=== PATIENT | female | born 1985 | race African-American/Black ===

== ENCOUNTER 2020-07-21 16:01 | Outpatient (REF) | payer OTHER, SELFPAY | END 2020-07-21 16:02 | disposition home or self-care (01) | LOC: HO.LAB 16:01 | PROVIDERS: Visit Provider Internal Medicine | DX: Z20.828 Contact with and (suspected) exposure to other viral communicable diseases (principal) | CPT/HCPCS: C9803; U0003 ==

== ENCOUNTER → 2022-01-12 14:34 | Outpatient (BNVA) | payer OTHER, SELFPAY | PROVIDERS: PCP Nurse Practitioner Family; Visit Provider Physician Assistant | DX: Z13.89 Encounter for screening for other disorder (principal) ==

== ENCOUNTER → 2022-02-04 08:32 | Outpatient (BNVA) | payer OTHER, SELFPAY | PROVIDERS: PCP Nurse Practitioner Family; Referring Provider Nurse Practitioner Family; Visit Provider Physician Assistant | DX: E66.01 Morbid (severe) obesity due to excess calories (principal); Z68.42 Body mass index [BMI] 45.0-49.9, adult; K21.9 Gastro-esophageal reflux disease without esophagitis; Z98.0 Intestinal bypass and anastomosis status | CPT/HCPCS: 99202 ==

== ENCOUNTER 2022-02-26 08:33 | Outpatient (REF) | payer OTHER, SELFPAY ==
--- NOTE | ~2022-02-26 | FL_ITS ---
EXAMINATION: FL UPPER GI SERIES CLINICAL INFORMATION: Prior gastric bypass over 10 years ago at outside facility. Heartburn. Weight gain. COMPARISON: None TECHNIQUE: Upper GI series is performed using fluoroscopic evaluation in addition to multiple fluoroscopic spot views. The patient is imaged both upright and prone and using both thick and thin barium sulfate along with effervescent granules. Fluoroscopy time: 2.6 minutes DAP: 44.653 Gycm2 Fluoroscopic spot images: 26 and 5 overhead images. FINDINGS: Preliminary fluoroscopic spot views of the lower abdomen show bilateral nipple piercings. Bowel gas unremarkable. No visible surgical clips are unchanged in both. There is normal esophageal motility. There is no obstruction, stricture, or ulceration. There is physiologic herniation at the esophagogastric junction during the prone Valsalva maneuver but without hiatal hernia. No gastroesophageal reflux. The gastric pouch is smooth in contour. No thickened folds or mass or ulceration. There is no visible stricture or scarring at the gastrojejunal anastomosis. Serial overhead images show prompt transit of contrast from the stomach to the mid small bowel without delay. No small bowel dilatation or thickened folds. FL/FL upper GI w air IMPRESSION: -Physiologic herniation esophagogastric junction during prone Valsalva maneuver but without hiatal hernia. -No gastroesophageal reflux. -Status post prior remote gastric bypass. Gastric Panitch smooth, no scarring or ulceration or stricture. -Small bowel normal in caliber. No delay in transit. No thickened folds.
== END 2022-02-26 08:34 | disposition home or self-care (01) ==
LOC: HO.XRAY 08:33
PROVIDERS: PCP Nurse Practitioner Family; Visit Provider Physician Assistant
DX: E66.01 Morbid (severe) obesity due to excess calories (principal); K21.9 Gastro-esophageal reflux disease without esophagitis; Z71.3 Dietary counseling and surveillance; Z98.0 Intestinal bypass and anastomosis status
CPT/HCPCS: 74246; 99211; 99212

== ENCOUNTER 2022-02-26 13:56 | Outpatient (REF) | payer OTHER, SELFPAY ==
[2022-02-28 15:43] LABS: H Pylori Breath Test Negative (Negative)
== END 2022-02-26 13:57 | disposition home or self-care (01) ==
LOC: HO.LNP 13:56
PROVIDERS: Visit Provider Physician Assistant
DX: E66.01 Morbid (severe) obesity due to excess calories (principal); K21.9 Gastro-esophageal reflux disease without esophagitis; Z98.0 Intestinal bypass and anastomosis status; Z11.0 Encounter for screening for intestinal infectious diseases
CPT/HCPCS: 83013

== ENCOUNTER 2022-03-10 09:25 | Outpatient (REF) | payer OTHER, SELFPAY ==
--- NOTE | ~2022-03-10 | XR_ITS ---
EXAMINATION: XR CHEST CLINICAL INFORMATION: Morbid obesity due to excess calories. COMPARISON: None TECHNIQUE: 2 views of the chest were obtained. FINDINGS: The lungs are well expanded. No focal consolidation. No pleural effusion. Cardiac silhouette is within normal limits. XR/XR chest 2V IMPRESSION: No acute abnormality.
--- NOTE | ~2022-03-10 | US_ITS ---
EXAMINATION: US COMPLETE ABDOMEN WITH LIVER ELASTOGRAPHY CLINICAL INFORMATION: Morbid/severe obesity due to excess calories. COMPARISON: None. TECHNIQUE: Real-time imaging of the abdominal viscera. Noninvasive ultrasound liver fibrosis assessment is performed using Jovan ElastPQ point quantification shear wave elastography (2D-SWE) with a C5-2 MHz transducer. Multiple elastography samples are obtained. FINDINGS: PANCREAS: Normal. The visualized pancreatic head and body are normal in appearance. The remainder of the pancreas is obscured from visualization by the overlying bowel gas. ABDOMINAL AORTA: The proximal, middle, and distal aortic segments are normal in caliber. INFERIOR VENA CAVA: Visualized portions are normal. LIVER: The liver demonstrates normal size, contour and increased echogenicity. No focal lesion or intrahepatic biliary duct dilatation. The right lobe measures 16.2 cm in length. The left lobe measures 12.2 cm in length. Portal flow is hepatopetal. Shear wave liver elastography median stiffness is 1.62 m/s (reference: normal median stiffness is 1.3 m/s or less). IQR/median stiffness to assess sampling precision is 0.06 (reference: good quality data set is IQR/median stiffness of 0.15 or less). GALLBLADDER: The gallbladder is physiologically distended with an echogenic stone measuring 0.8 x 0.5 x 0.8 cm. There is no visualization of sludge, polyps, wall thickening or pericholecystic fluid. No tenderness in right upper quadrant. COMMON BILE DUCT: Normal in caliber measuring 0.3 cm in diameter. RIGHT KIDNEY: Normal. No hydronephrosis. No renal calculi or focal parenchymal lesions. The kidney measures 8.6 cm in maximum dimension. LEFT KIDNEY: Normal. No hydronephrosis. No renal calculi or focal parenchymal lesions. The kidney measures 10.2 cm in maximum dimension. SPLEEN: Normal. The spleen measures 9.5 cm in maximum dimension. FREE FLUID: None. US/US abdomen comp w elastography IMPRESSION: 1. Hepatic steatosis without focal lesion. Cholelithiasis without wall thickening. 2. Liver elastography: Median liver stiffness measures 1.62 m/s which corresponds to cACLD ( ruled out). REFERENCE: Society of Radiologists in Ultrasound Liver Stiffness Thresholds (2019): LIVER STIFFNESS THRESHOLDS: *Liver Stiffness equal or less than 1.3 m/s: High probability of being normal. *Liver Stiffness less than 1.7 m/s: In the absence of other known clinical signs, rules out compensated advanced chronic liver disease. *Liver Stiffness 1.7-2.1 m/s: Suggestive of compensated advanced chronic liver disease but need further test for confirmation. *Liver Stiffness over 2.1 m/s: Rules in compensated advanced chronic liver disease. *Liver Stiffness over 2.4 m/s: Suggestive of clinically significant portal hypertension. QUALITY OF DATA SET: *IQR/Median value equal or less than 0.15 implies a quality data set. *IQR/Median value over 0.15 implies a poor quality data set. SIGNIFICANT CHANGE FROM PRIOR EXAM: Significant change if liver stiffness measurement is 10% or greater from prior exam. OTHER CONSIDERATIONS: The stage of liver fibrosis may be overestimated in the setting of acute hepatitis, liver inflammation, elevated liver function tests, hepatic vascular congestion, obstructive cholestasis, non-fasting state, and infiltrative diseases such as amyloidosis and lymphoma. In some patients with NAFLD, the liver stiffness thresholds for compensated advanced chronic liver disease may be lower. In causes other than viral hepatitis and NAFLD, liver stiffness thresholds are not well established.
--- NOTE | 2022-03-10 10:32 | ECG_ITS ---
Test Reason : E66.01 Blood Pressure : / mmHG Vent. Rate : 049 BPM Atrial Rate : 049 BPM P-R Int : 172 ms QRS Dur : 076 ms QT Int : 428 ms P-R-T Axes : 041 048 032 degrees QTc Int : 386 ms Sinus bradycardia Otherwise normal ECG No previous ECGs available Referred By: Ann Vo Electronically Signed By:Cristi Morris
[2022-03-10 10:53] LABS: MANUAL DIFF FLAG NO
[2022-03-10 11:56] LABS: Basophils Absolute Auto 0.1 X10*3/uL (0.0-0.2); Basophils Percent Auto 1.2 % (0-2); Eosinophils Absolute Auto 0.2 X10*3/uL (0.0-0.4); Eosinophils Percent Auto 3.6 % (0-4); Hematocrit 39.3 % (37.0-47.0); Hemoglobin 12.7 g/dl (12.0-16.0); Imm Gran Abs Auto 0.02 X10*3/uL (0.00-0.03); Imm Gran Pct Auto 0.5 % (0.0-0.4); Lymphocytes Absolute Auto 1.7 X10*3/uL (1.2-4.9); Lymphocytes Percent Auto 39.8 % (20-40); Mean Corpuscular HGB Conc 32.3 g/dl (31.0-35.0); Mean Corpuscular Hemoglobin 30.7 pg (27.0-33.0); Mean Corpuscular Volume 94.9 fL (80.0-98.0); Mean Platelet Volume 10.2 fL (9.4-12.3); Monocytes Absolute Auto 0.4 X10*3/uL (0.1-1.2); Monocytes Percent Auto 10.4 % (2-11); Neutrophils Absolute Auto 1.9 x10*3/uL (2.0-8.3); Neutrophils Percent Auto 44.5 % (45-73); Platelet Count 243 X10*3/uL (160-400); Red Blood Count 4.14 X10*6/uL (4.20-5.50); Red Cell Distribution Width 14.9 % (11.0-16.0); White Blood Count 4.2 X10*3/uL (4.8-10.8)
[2022-03-10 12:05] LABS: Estimated Average Glucose 97 mg/dL
[2022-03-10 12:41] LABS: Ferritin 15 ng/mL (10-122); TSH reflex Free T4 1.33 uIU/mL (0.32-4.0); Vitamin D 25-OH Total 14.6 ng/mL (>30)
[2022-03-10 12:55] LABS: Alanine Aminotransferase 13 U/L (0-31); Albumin Level 3.6 g/dL (3.5-5.0); Alkaline Phosphatase 72 U/L (39-117); Anion Gap 11 (12-20); Aspartate Amino Transferase 18 U/L (5-31); Bilirubin Total 0.4 mg/dL (0.0-1.0); Blood Urea Nitrogen 9 mg/dL (9-16); C Reactive Protein 0.14 mg/dL (< or = 0.50); Carbon Dioxide 25 mmol/L (22-29); Chloride 108 mmol/L (96-108); Cholesterol 196 mg/dL; Estimated Glomerular Filt Rate > 60; Glucose Random 76 mg/dL (60-115); HDL Cholesterol 47 mg/dL; Iron 54 mcg/dL (30-160); LDL Cholesterol Calculated 141 mg/dl; Percent Iron Saturation 15 % (15-50); Potassium 3.8 mmol/L (3.3-5.1); Sodium 140 mmol/L (135-145); Total Iron Binding Capacity 353 mcg/dL (228-428); Total Protein 6.5 g/dL (6.5-8.0); Triglycerides 41 mg/dL; Unsaturated Iron Binding 299 ug/dL
[2022-03-10 13:02] LABS: Folate 12.5 ng/mL (> or = 4.0); Vitamin B12 355 pg/mL (200-900)
[2022-03-10 13:44] LABS: Insulin 4 uU/mL (2-29)
[2022-03-12 02:17] LABS: Calcium (PTHI) 9.8 mg/dL (8.6-10.2); PTHI 120 pg/mL (16-77)
[2022-03-13 14:42] LABS: Zinc 50 mcg/dL (60-130)
[2022-03-14 08:17] LABS: Vitamin B1 8 nmol/L (8-30)
[2022-03-16 00:17] LABS: Vitamin A 31 mcg/dL (38-98)
== END 2022-03-10 09:26 | disposition home or self-care (01) ==
LOC: HO.US 09:25
PROVIDERS: PCP Nurse Practitioner Family; Visit Provider Physician Assistant
DX: E66.01 Morbid (severe) obesity due to excess calories (principal); K21.9 Gastro-esophageal reflux disease without esophagitis; Z98.0 Intestinal bypass and anastomosis status
CPT/HCPCS: 36415; 71046; 76705; 76981; 80053; 80061; 82306; 82607; 82728; 82746; 83036; 83525; 83540; 83970; 84425; 84443; 84590; 84630; 85025; 86140; 93005

== ENCOUNTER → 2022-03-18 13:59 | Outpatient (BNVA) | payer OTHER, SELFPAY | PROVIDERS: PCP Nurse Practitioner Family; Visit Provider Physician Assistant | DX: E66.01 Morbid (severe) obesity due to excess calories (principal); K21.9 Gastro-esophageal reflux disease without esophagitis; Z98.0 Intestinal bypass and anastomosis status | CPT/HCPCS: 99212 ==

== ENCOUNTER → 2022-04-02 09:46 | Outpatient (BNVA) | payer OTHER, SELFPAY | PROVIDERS: PCP Nurse Practitioner Family; Visit Provider Dietitian, Registered | DX: E66.01 Morbid (severe) obesity due to excess calories (principal); Z68.41 Body mass index [BMI] 40.0-44.9, adult; Z71.3 Dietary counseling and surveillance | CPT/HCPCS: 97802 ==

== ENCOUNTER → 2022-04-08 15:04 | Outpatient (BNVA) | payer OTHER, SELFPAY | PROVIDERS: PCP Nurse Practitioner Family; Referring Provider Nurse Practitioner Family; Visit Provider Physician Assistant | DX: E66.01 Morbid (severe) obesity due to excess calories (principal); K21.9 Gastro-esophageal reflux disease without esophagitis; Z98.84 Bariatric surgery status; Z79.899 Other long term (current) drug therapy | CPT/HCPCS: 99212 ==

== ENCOUNTER → 2022-04-26 11:00 | Outpatient (BNVA) | payer OTHER, SELFPAY | PROVIDERS: PCP Physician Assistant; Visit Provider Counselor Mental Health | DX: F43.20 Adjustment disorder, unspecified (principal); Z98.84 Bariatric surgery status | CPT/HCPCS: 90791 ==

== ENCOUNTER → 2022-06-04 08:36 | Outpatient (BNVA) | payer OTHER, SELFPAY | PROVIDERS: PCP Nurse Practitioner Family; Visit Provider Physician Assistant | DX: E66.01 Morbid (severe) obesity due to excess calories (principal); Z68.41 Body mass index [BMI] 40.0-44.9, adult; Z98.84 Bariatric surgery status | CPT/HCPCS: 99212 ==

== ENCOUNTER → 2022-07-15 16:12 | Outpatient (BNVA) | payer OTHER, SELFPAY | PROVIDERS: PCP Nurse Practitioner Family; Visit Provider Physician Assistant | DX: E66.01 Morbid (severe) obesity due to excess calories (principal); K21.9 Gastro-esophageal reflux disease without esophagitis; Z68.41 Body mass index [BMI] 40.0-44.9, adult; Z98.84 Bariatric surgery status | CPT/HCPCS: 99212 ==

== ENCOUNTER 2022-08-03 06:37 | Day surgery (SDC) | payer OTHER, SELFPAY ==
--- NOTE | 2022-07-30 15:15 | MHC.SHP ---
Pre-Procedural Eval Section A Date of Service: 07/30/22 The patient is an INPATIENT: No The History & Physical has been completed within 30 days and I have reviewed it.: Yes Section B Chief Complaint: Bariatric surgery status Relevant Family History (Specify if Yes): No Relevant Social History: None Medical History: No relevant PMH History of Previous Operations: Relevant previous surgery/procedure and date(s) (laparoscopic gastric bypass) Allergies: Allergies Allergy/AdvReac Type Severity Reaction Status Date / Time No Known Allergies Allergy Verified 07/26/22 11:59 Review of Systems Sugical H&P ROS: Negative: Constitution, Cardiovascular, Respiratory, Neurological, Psychiatric, Hem-Onc, Allergic/Immunologic, Gastrointestinal, Genitourinary, Musculoskeletal, Integumentary, Endocrine and Eyes/Ears/Nose/Throat Exam Surgical H&P Exam: Normal: HEENT, Normal: Heart, Normal: Lungs, Normal: Extremities, Normal: Abdomen, Normal: Skin and Normal: Neurological Plan Diagnosis/Plan: Unchanged (EGD to assess for esophagitis and bypass anatomy. Risks for bleeding and perforation were discussed with the patient.) I have reviewed the history and physical and performed a pertinent physical examination on my patient. No changes have occurred unless specified.
--- NOTE | 2022-08-02 09:23 | HO.ANESPROP2 ---
Documented by User: Estephanie Alvarez NP 08/02/22 09:23 HPI - Anesthesia Eval Consult details Narrative: 36yo F for Upper Endoscopy PMFSH Active Problems Active Problems: All Active Problems (Updated 04/26/22 @ 11:44 by Emily Lockwood) Adjustment disorder (Acute) S/P gastric bypass (Acute) GERD (gastroesophageal reflux disease) (Acute) Morbid obesity (Acute) Family History Family History Mother Family history of thyroid problem Diabetes High blood cholesterol Hypertension Father No problems noted. Sister Family history of thyroid problem Son Mental disability Surgical History Surgical History Hx of section Hx of wisdom tooth extraction Social History Social History Alcohol intake: former Patient Tobacco Use Status: Never used Tobacco Advance Directives: No Advance Directives Information Provided: Yes Meds Allergies Allergy/AdvReac Type Severity Reaction Status Date / Time No Known Allergies Allergy Verified 07/26/22 11:59 Exam Exam Date and Time: August 02, 2022922 Pertinent Lab Results Pertinent Lab Results: Laboratory Tests 03/10/22 03/10/22 10:51 10:51 WBC 4.2 L Hgb 12.7 Hct 39.3 Plt Count 243 Sodium 140 Potassium 3.8 Chloride 108 Carbon Dioxide 25 BUN 9 Creatinine 1.01 Assessment and Plan Assessment Anesthesia Assessment: Chart Reviewed Documented by User: Barrington Dong MD 08/03/22 07:09 PMFSH Family History Family History Mother Family history of thyroid problem Diabetes High blood cholesterol Hypertension Father No problems noted. Sister Family history of thyroid problem Son Mental disability Family history of problems with anesthesia: No Surgical History Surgical History Hx of section Hx of wisdom tooth extraction History of Problems with Anesthesia: No Social History Social History Alcohol intake: former Patient Tobacco Use Status: Never used Tobacco Advance Directives: No Advance Directives Information Provided: Yes Meds Allergies Allergy/AdvReac Type Severity Reaction Status Date / Time No Known Allergies Allergy Verified 07/26/22 11:59 Exam Airway Mallampati Class: II TM Dist: >3cm Neck ROM: Full Loose/Missing/Broken Teeth: No Heart: rrr+[id number] Lungs: cta b/l Assessment and Plan Assessment Anesthesia Assessment: Anesthesia Plan Discussed Final Anesthetic Review Family History of Problems with Anesthesia: No History of Problems with Anesthesia: No NPO: Yes ASA Class: II Final Preanesthetic Review: No Changes in Pt Med Stat, Meds/Allgs Chart Reviewed, Consent Obtained/Reviewed and Anes Risks/Benef Reviewed Patient Risk: Intermediate Procedure Risk: Intermediate Assessment/Block/Sedation in SS: Assess/Block/Sedation-SS Anesthetic Plan Anesthetic Plan: MAC: and Agree w/ Assess. and Plan Disposition: Standard PACU
[2022-08-02 15:28] LABS: COVID-19 Test Negative (Negative); IDNOW Serial# BCCEAD1C
[2022-08-03 06:51] LABS: UPreg QC Valid YES; Urine Pregnancy NEGATIVE (NEGATIVE)
[2022-08-03] MEDS: Lactated Ringers 1,000 ML 80 ML IVCONT (06:57)
[2022-08-03 07:10] VITALS: BMI 42.1
[2022-08-03 07:11] VITALS: BP 106/65; PULSE 71; RESP 18; TEMP 36.6; O2SAT 98
[2022-08-03 08:00] VITALS: BP 90/62; PULSE 96; RESP 16; TEMP 36.5; O2SAT 94
--- NOTE | 2022-08-03 08:01 | P.BOP_ITS ---
Brief Operative Note Date of Service: 08/03/22 Pre-op diagnosis: s/p gastric bypass and GERD Post-op diagnosis: same (& redundant gastric pouch) Procedure: PROCEDURE DATE: ?08/03/22 PREOPERATIVE DIAGNOSIS: GERD, s/p gastric bypass POSTOPERATIVE DIAGNOSIS: ?Same as above. 1) Redundant gastric pouch, 2) Candy cane gastro-jejunostomy PROCEDURE: [id number] with biopsies Surgeon: ?Marlon Bourgeois M.D.. Ph.D. Zoning Engineer: ?None ? Anesthesia: IV sedation Estimated blood loss: ?Minimal FINDINGS AND PROCEDURE: ? OPERATIVE INDICATIONS: ?The patient is a 36 year old male known to me who under went a laparoscopic gastric bypass elsewhere. The patient had inadequate weight loss so far and has GERD.? Based on this information I recommended an upper endoscopy to evaluate the patient's symptoms.? Risks and complications of the surgery were discussed with the patient in advance particularly the possibility of perforation or bleeding that may require surgical intervention. The patient understood the risks and was in agreement with the plan. ? PROCEDURE: After informed consent was obtained by the patient, the patient was ?transferred to the Operating Room and was placed in the supine position.? After successful induction of IV sedation, a mouth block was placed and the patient was placed in the left lateral decubitus position. An upper endoscopy was performed next, the oropharynx and esophagus appeared within the normal limits. There was no hiatal hernia.? The z-line was smooth. Two biopsies were obtained from the distal esophagus 2-3 cm proximal to the GE junction and two biopsies from the GE junction. The gastric pouch was entered, appeared to be of normal length (GEJ: 36cm from incisors and GJ anastomosis at 40cm from incisors), but there was significant lateral redundancy. There was no gastritis and the gastrojejunostomy was patent. Two biopsies were obtained from the gastric pouch. No significant bleeding was noted from any of the biopsy sites. There was no anastomotic ulcer.? At that point the scope was advanced into the proximal small intestine (proximal Ashley limb) which appeared to be normal as well. There was mild elongation of the blind end of the Ashley limb (candy cane anatomy). The Ashley limb and the pouch were decompressed and the scope was withdrawn from the patient's mouth. The patient was awaken and was transferred in stable condition to the Recovery Room for further care. I was present and performed all steps of the procedure. There were no residents to assist with this case. Marlon Bourgeois M.D., Ph.D. Surgeon: Torres Bourgeois MD Anesthesia: MAC Was an Zoning Engineer used for this Procedure?: No Estimated blood loss (mL): 0 IV fluids (mL): 400 Urine output (mL): 0 (No Carlton to record) Pathology: other (1) Gastric pouch x2, 2) GEJ x2, 3) distal esophagus x2 ) Condition: stable Disposition: PACU
[2022-08-03 08:12] VITALS: BP 98/74; PULSE 86; RESP 16; O2SAT 100
[2022-08-03 08:26] VITALS: BP 112/75; PULSE 74; RESP 16; TEMP 36.4; O2SAT 98
[2022-08-03 08:41] VITALS: BP 111/76; PULSE 72; RESP 16; TEMP 36.4; O2SAT 98
== END 2022-08-03 09:15 | disposition home or self-care (01) ==
PROVIDERS: Nurse Practitioner; Physician Assistant Surgical; PCP Nurse Practitioner Family; Visit Provider Surgery
PROC: 0DJ08ZZ Inspection of Upper Intestinal Tract, Via Natural or Artificial Opening Endoscopic (ICD-10-PCS; CPT 43235; principal; 2022-08-03 07:30)
DX: E66.01 Morbid (severe) obesity due to excess calories (principal); Z68.41 Body mass index [BMI] 40.0-44.9, adult; K95.89 Other complications of other bariatric procedure; K31.89 Other diseases of stomach and duodenum; K21.9 Gastro-esophageal reflux disease without esophagitis; Z98.84 Bariatric surgery status; Z20.822 Contact with and (suspected) exposure to COVID-19
CPT/HCPCS: 43239; 81025; 87635; 88305; 88342; J2250

== ENCOUNTER 2022-08-17 13:35 | Inpatient (IN) | payer OTHER, SELFPAY ==
[2022-08-06 10:42] VITALS: BMI 41.8
[2022-08-13 13:06] LABS: MANUAL DIFF FLAG NO
[2022-08-13 14:23] LABS: Basophils Percent Auto 0.6 % (0-2); Eosinophils Absolute Auto 0.1 X10*3/uL (0.0-0.4); Eosinophils Percent Auto 2.1 % (0-4); Hematocrit 42.6 % (37.0-47.0); Lymphocytes Absolute Auto 1.7 X10*3/uL (1.2-4.9); Lymphocytes Percent Auto 32.9 % (20-40); Mean Corpuscular HGB Conc 32.9 g/dl (31.0-35.0); Mean Corpuscular Hemoglobin 30.6 pg (27.0-33.0); Mean Corpuscular Volume 93.2 fL (80.0-98.0); Mean Platelet Volume 10.5 fL (9.4-12.3); Monocytes Absolute Auto 0.7 X10*3/uL (0.1-1.2); Monocytes Percent Auto 12.6 % (2-11); Neutrophils Absolute Auto 2.7 x10*3/uL (2.0-8.3); Neutrophils Percent Auto 51.8 % (45-73); Platelet Count 289 X10*3/uL (160-400); Red Blood Count 4.57 X10*6/uL (4.20-5.50); Red Cell Distribution Width 14.6 % (11.0-16.0); White Blood Count 5.1 X10*3/uL (4.8-10.8)
[2022-08-13 14:27] LABS: INTERNATIONAL NORM RATIO 1.1 (0.9-1.1); Prothrombin Time 12.1 SEC (10.0-13.1)
[2022-08-13 14:30] LABS: Partial Thromboplastin Time 38.1 SEC (26.0-36.4)
[2022-08-13 15:36] LABS: Estimated Average Glucose 100 mg/dL; Hemoglobin A1c % 5.1 %
[2022-08-13 16:07] LABS: Alanine Aminotransferase 13 U/L (0-31); Albumin Level 3.8 g/dL (3.5-5.0); Alkaline Phosphatase 67 U/L (39-117); Anion Gap 16 (12-20); Aspartate Amino Transferase 23 U/L (5-31); Bilirubin Total 0.5 mg/dL (0.0-1.0); C Reactive Protein 0.15 mg/dL (< or = 0.50); Calcium 9.6 mg/dL (8.4-10.2); Carbon Dioxide 21 mmol/L (22-29); Chloride 105 mmol/L (96-108); Cholesterol 247 mg/dL; Creatinine Clr Calc Pharmacy 90.3; Estimated Glomerular Filt Rate > 60; Glucose Random 77 mg/dL (60-115); HDL Cholesterol 41 mg/dL; Insulin 7 uU/mL (2-29); LDL Cholesterol Calculated 188 mg/dl; Potassium 4.2 mmol/L (3.3-5.1); Sodium 138 mmol/L (135-145); TSH reflex Free T4 0.77 uIU/mL (0.32-4.0); Total Protein 6.9 g/dL (6.5-8.0); Triglycerides 91 mg/dL
[2022-08-13 16:25] LABS: Blood Urea Nitrogen 14 mg/dL (9-16)
--- NOTE | 2022-08-14 01:06 | MHC.SHP ---
Pre-Procedural Eval Section A Date of Service: 08/14/22 The patient is an INPATIENT: No The History & Physical has been completed within 30 days and I have reviewed it.: Yes Section B Chief Complaint: Morbid (severe) obesity due to excess calories Relevant Family History (Specify if Yes): No Relevant Social History: None Present Medications: None Medical History: No relevant PMH History of Previous Operations: Relevant previous surgery/procedure and date(s) (Lap gastric bypass) Allergies: Allergies Allergy/AdvReac Type Severity Reaction Status Date / Time No Known Allergies Allergy Verified 08/06/22 11:43 Review of Systems Sugical H&P ROS: Negative: Constitution, Cardiovascular, Respiratory, Neurological, Psychiatric, Hem-Onc, Allergic/Immunologic, Gastrointestinal, Genitourinary, Musculoskeletal, Integumentary, Endocrine and Eyes/Ears/Nose/Throat Exam Surgical H&P Exam: Normal: HEENT, Normal: Heart, Normal: Lungs, Normal: Extremities, Normal: Abdomen, Normal: Skin and Normal: Neurological Plan Diagnosis/Plan: Unchanged I have reviewed the history and physical and performed a pertinent physical examination on my patient. No changes have occurred unless specified.
[2022-08-16 10:13] LABS: COVID-19 Test Negative (Negative); IDNOW Serial# BCCEAD1C
--- NOTE | 2022-08-16 10:36 | P.CONAN_ITS ---
Documented by User: Estephanie Alvarez NP 08/16/22 10:39 HPI - Anesthesia Eval Consult details Narrative: 36yo F for Gastric Bypass Revision to Gastric Sleeve Laparoscopic,possible diaphragmatic hernia,possible ventral hernia,possible open s/p gastric bypass 2004 [facility] Active Problems Active Problems: All Active Problems (Updated 08/06/22 @ 10:40 by Ella Cole RN) Morbid obesity (Acute) GERD (gastroesophageal reflux disease) (Acute) S/P gastric bypass (Acute) Adjustment disorder (Acute) Past Medical History Medical History GERD (gastroesophageal reflux disease) Obesity Sleep apnea Family History Family History Mother Family history of thyroid problem Diabetes High blood cholesterol Hypertension Father No problems noted. Sister Family history of thyroid problem Son Mental disability Family history of problems with anesthesia: No Surgical History Surgical History History of esophagogastroduodenoscopy (EGD) Hx of section Hx of gastric bypass Hx of wisdom tooth extraction History of Problems with Anesthesia: No Social History Social History Are you a primary career development counselor to a significant other at home: No Do you presently have visiting nurse or other home services: No Alcohol intake: former Patient Tobacco Use Status: Never used Tobacco Use of substances other than those prescribed or required for medical reasons: Yes Substance Use Type Other:: Has stopped Marijuana for this Sx Substance Use Frequency: Occasionally Have you been hit, kicked, punched, or otherwise hurt by someone within the past year? If so, by whom?: No Are you DNR?: No Advance Directives: No Advance Directives Information Provided: Yes (Mailed w/ preop instructions) Advance Directives on File: No Recently lost weight without trying: No How much weight loss: 24-33 pounds Nutrition Risks: No Nutritional Risk Patient : No FDLMP: 07/15/22 : No Poor oral hygiene: No (Intact teeth) Meds Allergies Allergy/AdvReac Type Severity Reaction Status Date / Time No Known Allergies Allergy Verified 08/17/22 09:35 Exam Exam Date and Time: August 16, 2022 1036 Height,Weight and Vital Signs: Height 5 ft 3 in Weight 107.048 kg Pertinent Lab Results Pertinent Lab Results: Laboratory Tests 08/13/22 08/13/22 08/13/22 13:00 13:05 13:05 WBC 5.1 RBC 4.57 Hgb 14.0 Hct 42.6 MCV 93.2 MCH 30.6 MCHC 32.9 RDW 14.6 Plt Count 289 MPV 10.5 Immature Gran % (Auto) 0.0 Neut % (Auto) 51.8 Lymph % (Auto) 32.9 [place] % (Auto) 12.6 H Eos % (Auto) 2.1 Baso % (Auto) 0.6 Lymph # (Auto) 1.7 [place] # (Auto) 0.7 Eos # (Auto) 0.1 Baso # (Auto) 0.0 Abs Immat Gran (auto) 0.00 Absolute Neuts (auto) 2.7 Absolute Nucleated RBC 0.000 Nucleated RBC % (auto) 0.0 PT 12.1 INR 1.1 APTT 38.1 H Sodium Potassium Chloride Carbon Dioxide Anion Gap BUN Creatinine Estim Creat Clear Calc Estimated GFR Random Glucose Estimat Average Glucose Hemoglobin A1c % Insulin Level Calcium Total Bilirubin AST ALT Alkaline Phosphatase C-Reactive Protein Total Protein Albumin Triglycerides Cholesterol LDL Cholesterol, Calc HDL Cholesterol TSH COVID-19 ([facility]) COVID-19 Clin Com Blood Type A Positive Antibody Screen NEGATIVE 08/13/22 08/13/22 08/16/22 13:05 13:05 09:48 WBC RBC Hgb Hct MCV MCH MCHC RDW Plt Count MPV Immature Gran % (Auto) Neut % (Auto) Lymph % (Auto) [place] % (Auto) Eos % (Auto) Baso % (Auto) Lymph # (Auto) [place] # (Auto) Eos # (Auto) Baso # (Auto) Abs Immat Gran (auto) Absolute Neuts (auto) Absolute Nucleated RBC Nucleated RBC % (auto) PT INR APTT Sodium 138 Potassium 4.2 Chloride 105 Carbon Dioxide 21 L Anion Gap 16 BUN 14 D Creatinine 1.00 Estim Creat Clear Calc 90.3 Estimated GFR > 60 Random Glucose 77 Estimat Average Glucose 100 Hemoglobin A1c % 5.1 Insulin Level 7 Calcium 9.6 D Total Bilirubin 0.5 AST 23 ALT 13 Alkaline Phosphatase 67 C-Reactive Protein 0.15 Total Protein 6.9 Albumin 3.8 Triglycerides 91 Cholesterol 247 LDL Cholesterol, Calc 188 HDL Cholesterol 41 TSH 0.77 COVID-19 ([facility]) Negative COVID-19 Clin Com See Note Blood Type Antibody Screen Narrative Narrative: EKG 03/2022 Vent. Rate : 049 BPM ? ? Atrial Rate : 049 BPM ?? P-R Int : 172 ms? QRS Dur : 076 ms ? ? QT Int : 428 ms ? ? ? P-R-T Axes : 041 048 032 degrees ?? QTc Int : 386 ms ? Sinus bradycardia Otherwise normal ECG No previous ECGs available Assessment and Plan Assessment Anesthesia Assessment: Chart Reviewed Final Anesthetic Review Family History of Problems with Anesthesia: No History of Problems with Anesthesia: No Documented by User: Lesly Guo MD 08/17/22 10:43 [facility] Active Problems Active Problems: All Active Problems (Updated 08/06/22 @ 10:40 by Ella Cole RN) Morbid obesity (Acute)- BMI 41.8 GERD (gastroesophageal reflux disease) (Acute) S/P gastric bypass (Acute) Adjustment disorder (Acute) GERALDINE diagnosed 2003. Not using CPAP machine. Not sure if still has GERALDINE but snores Past Medical History Medical History GERD (gastroesophageal reflux disease) Obesity Sleep apnea Family History Family History Mother Family history of thyroid problem Diabetes High blood cholesterol Hypertension Father No problems noted. Sister Family history of thyroid problem Son Mental disability Surgical History Surgical History History of esophagogastroduodenoscopy (EGD) Hx of section Hx of gastric bypass Hx of wisdom tooth extraction Social History Social History Are you a primary career development counselor to a significant other at home: No Do you presently have visiting nurse or other home services: No Alcohol intake: former Patient Tobacco Use Status: Never used Tobacco Use of substances other than those prescribed or required for medical reasons: Yes Substance Use Type Other:: Has stopped Marijuana for this Sx Substance Use Frequency: Occasionally Have you been hit, kicked, punched, or otherwise hurt by someone within the past year? If so, by whom?: No Are you DNR?: No Advance Directives: No Advance Directives Information Provided: Yes (Mailed w/ preop instructions) Advance Directives on File: No Recently lost weight without trying: No How much weight loss: 24-33 pounds Nutrition Risks: No Nutritional Risk Patient : No FDLMP: 07/15/22 : No Poor oral hygiene: No (Intact teeth) Meds Allergies Allergy/AdvReac Type Severity Reaction Status Date / Time No Known Allergies Allergy Verified 08/17/22 09:35 Exam Height,Weight and Vital Signs: Height 5 ft 3 in Weight 107.048 kg Vital Signs Temp Pulse Resp BP Pulse Ox O2 Del Method 08/17/22 09:39 98.0 F 52 15 121/71 99 Room Air Airway Mallampati Class: III TM Dist: >3cm Neck ROM: Full Loose/Missing/Broken Teeth: No (Patient denies any broken, loose or missing teeth) Heart: RRR Lungs: CTAB Assessment and Plan Assessment Anesthesia Assessment: Anesthesia Plan Discussed Final Anesthetic Review NPO: Yes ASA Class: III Final Preanesthetic Review: No Changes in Pt Med Stat, Meds/Allgs Chart Reviewed, Consent Obtained/Reviewed and Anes Risks/Benef Reviewed Patient Risk: Intermediate Procedure Risk: Intermediate Assessment/Block/Sedation in SS: Assess/Block/Sedation-SS Anesthetic Plan Anesthetic Plan: GA Disposition: Standard PACU and Inp. Admit - Standard Bed
[2022-08-17] VITALS (13 sets, daily range): BP systolic 104–125; BP diastolic 58–99; PULSE 50–78; RESP 15–18; TEMP 36.1–36.8; O2SAT 94–100
--- OUTSIDE RECORDS SUMMARY | 2022-08-17 09:43 | XMS_ITS | Continuity of Care Document ---
:1985 Author Organization [facility] Address Unavailable , Care Team Providers Name Role Phone Alicia GALVAN, Jaylene Primary Care Physician Encounter [facility] [place] Date(s): 07/15/21 - 08/14/21 [facility] Allergies, Adverse Reactions, Alerts Substance Reaction Severity Status NKA Active Immunizations Given and Recorded Vaccine Date Status Refusal Reason influenza virus vaccine, inactivated1 06/05/14 Recorded tetanus/diphtheria/pertussis, acel(Tdap)2 06/05/14 Record ed 1Result Comment: [07/18/2014] Administered by NEELAM Marin.2Result Comment: [07/18/2014] Administered by NEELAM Marin. Medications Apri 0.15 mg-0.03 mg oral tablet 1 tablet, By Mouth, Daily, # 84 tablet, 1 Refills, [id number], 84, TAKE 1 TABLET BY MOUTH EVERYDAY, 158, cm, 06/19/21 14:19:00 EDT, Height, 108, kg, 01/16/21 12:26:00 EDT, Dry Weight Start Date: 08/03/21 Status: OrderedFolic Acid Daily, 0 Refills, Maintenance, 06/19/21 14:19:00 EDT, Partial fill upon patient request if the prescription is for a schedule II opioid drug. Start Date: 06/19/21 Status: Orderedlevothyroxine 0.05 mg oral tablet 1 tablet = 50 mcg, By Mouth, Daily, take on empty stomach, 30 min prior to eating or drinking, # 30 tablet, 6 Refills, Maintenance, 06/19/21 14:44:00 EDT, [id number], Partial fill upon patient request if the prescription is for a schedule II o... Start Date: 06/19/21 Stop Date: 01/15/22 Status: OrderedVitamin D3 5000 intl units oral capsule 1 capsule = 125 mcg, By Mouth, Daily, with food, # 60 capsule, 4 Refills, Maintenance, 06/19/21 14:47:00 EDT, Capsule, [id number], Partial fill upon patient request if the prescription is for aschedule II opioid drug., 158, cm, 06/19/21 14:19... Start Date: 06/19/21 Status: Ordered Problem List Condition Effective Dates Status Health Status Informant Morbid obesity with BMI of 45.0-49.9, Active adult(Confirmed) IUD migration(Confirmed) Active GERALDINE (obstructive sleep Active apnea)(Confirmed) Social History Social History Type Response Smoking Status Never (less than 100 in life time) entered on: 07/17/19 Sex
--- OUTSIDE RECORDS SUMMARY | 2022-08-17 09:43 | XMS_ITS | Continuity of Care Document ---
:[address] [facility] Address Unavailable , Care Team Providers Name Role Phone Jaylene Vargas NP Primary Care Physician Encounter [facility] [place] Date(s): 06/19/21 - 06/26/[address] [facility] Attending Physician: Mariia Bobby MD Referring Physician: Jaylene Vargas NP Allergies, Adverse Reactions, Alerts Substance Reaction Severity Status NKA Active Immunizations Given and Recorded Vaccine Date Status Refusal Reason influenza virus vaccine, inactivated1 06/05/14 Recorded tetanus/diphtheria/pertussis, acel(Tdap)2 06/05/14 Record ed 1Result Comment: [07/18/2014] Administered by NEELAM Marin.2Result Comment: [07/18/2014] Administered by NEELAM Marin. Medications Folic Acid Daily, 0 Refills, Maintenance, 06/19/21 14:19:00 EDT, Partial fill upon patient request if the prescription is for a schedule II opioid drug. Start Date: 06/19/21 Status: Orderedlevothyroxine 0.05 mg oral tablet 1 tablet = 50 mcg, By Mouth, Daily, take on empty stomach, 30 min prior to eating or drinking, # 30 tablet, 6 Refills, Maintenance, 06/19/21 14:44:00 EDT, [facility]/pharmacy #[id number], Partial fill upon patient request if the prescription is for a schedule II o... Start Date: 06/19/21 Stop Date: 01/15/22 Status: OrderedVitamin D3 5000 intl units oral capsule 1 capsule = 125 mcg, By Mouth, Daily, with food, # 60 capsule, 4 Refills, Maintenance, 06/19/21 14:47:00 EDT, Capsule, [id number], Partial fill upon patient request if the prescription is for aschedule II opioid drug., 158, cm, 06/19/21 14:19... Start Date: 06/19/21 Status: Ordered Problem List Condition Effective Dates Status Health Status Informant Morbid obesity with BMI of 45.0-49.9, Active adult(Confirmed) IUD migration(Confirmed) Active GERALDINE (obstructive sleep Active apnea)(Confirmed) Vital Signs Most recent to oldest [Reference Range]: 1 Height 158 cm (06/19/21 2:19 PM) Weight 107.4 kg (06/19/21 2:19 PM) Pulse Rate [55-90 bpm] 76 bpm (06/19/21 2:19 PM) Body Mass Index [18.5-24.99] 43.02 *>HHI* (06/19/21 2:19 PM) Blood Pressure [90-138/55-84 mm Hg] 126/66 mm Hg (06/19/21 2:19 PM) Blood pressure sites Arm, right (06/19/21 2:19 PM) Social History Social History Type Response Smoking Status Never (less than 100 in life time) entered on: 07/17/19 Sex
--- OUTSIDE RECORDS SUMMARY | 2022-08-17 09:43 | XMS_ITS | Continuity of Care Document ---
:1985 [facility] Address [address] [address]- Care Team Providers Name Role Phone Alicia GALVAN, Jaylene Primary Care Physician Encounter [facility] [place] Date(s): 03/20/21 - 04/19/21 [facility] [address] [address] Allergies, Adverse Reactions, Alerts Substance Reaction Severity Status NKA Active Immunizations Given and Recorded Vaccine Date Status Refusal Reason influenza virus vaccine, inactivated1 06/05/14 Recorded tetanus/diphtheria/pertussis, acel(Tdap)2 06/05/14 Record ed 1Result Comment: [07/18/2014] Administered by NEELAM Marin.2Result Comment: [07/18/2014] Administered by NEELAM Marin. Problem List Condition Effective Dates Status Health Status Informant Morbid obesity with BMI of 45.0-49.9, Active adult(Confirmed) IUD migration(Confirmed) Active GERALDINE (obstructive sleep Active apnea)(Confirmed) Social History Social History Type Response Smoking Status Never (less than 100 in life time) entered on: 07/17/19 Sex
--- OUTSIDE RECORDS SUMMARY | 2022-08-17 09:43 | XMS_ITS | Continuity of Care Document ---
:1985 Author Organization [facility] Address [address] [address]- Care Team Providers Name Role Phone Alicia GALVAN, Jaylene Primary Care Physician Encounter [facility] Date(s): 12/01/20 - 12/31/20 [facility] [address] [address] Allergies, Adverse Reactions, Alerts Substance Reaction Severity [...]
--- OUTSIDE RECORDS SUMMARY | 2022-08-17 09:43 | XMS_ITS | Continuity of Care Document ---
:1985 Author Organization [facility] Address Unavailable , Care Team Providers Name Role Phone Jaylene Vargas NP Primary Care Physician Encounter [facility] [place] Date(s): 06/19/21 - 07/19/21 [facility] Attending Physician: Andre Mejia Admitting Physician: Andre Mejia Referring Physician: AdmtrAndre Allergies, Adverse Reactions, Alerts Substance Reaction Severity [...] tablet, 6 Refills, Maintenance, 06/19/21 14:44:00 EDT, [facility]/pharmacy #[id number], Partial fill upon patient request if the prescription is for a schedule II o... Start Date: 06/19/21 Stop Date: 01/15/22 Status: OrderedVitamin D3 5000 intl units oral capsule 1 capsule = 125 mcg, By Mouth, Daily, with food, # 60 capsule, 4 Refills, Maintenance, 06/19/21 14:47:00 EDT, Capsule, [id number], Partial fill upon patient request if the [...]
--- OUTSIDE RECORDS SUMMARY | 2022-08-17 09:43 | XMS_ITS | Continuity of Care Document ---
:1985 Author Organization [facility] Address [address] [place] [address]- Care Team Providers Name Role Phone Alicia GALVAN, Jaylene Primary Care Physician En[place] [facility] [place] Date(s): 04/13/22 - 05/24/[address] [address] Discharge Disposition: A-D/C Home Attending Physician: Pina Elena DO Admitting Physician: Pina Elena DO Referring Physician: Pina Elena DO Allergies, Adverse Reactions, Alerts No Known Allergies Immunizations Given and Recorded Vaccine Date Status Refusal Reason influenza virus vaccine, inactivated1 06/05/14 Recorded tetanus/diphtheria/pertussis, acel(Tdap)2 06/05/14 Record ed 1Result Comment: [07/18/2014] Administered by NEELAM Marin.2Result Comment: [07/18/2014] Administered by NEELAM Marin. Medications Apri 0.15 mg-0.03 mg oral tablet 1 tablet, By Mouth, Daily, # 84 tablet, 1 Refills, [facility] [id number], 84, TAKE 1 TABLET BY MOUTH EVERYDAY, [...] Start Date: 06/19/21 Stop Date: 01/15/22 Status: Orderedmetronidazole topical 0.75% gel with applicator 1 application, Vaginally, Daily at bedtime, # 70 Gm, 0 Refills, Maintenance, 02/03/22 8:53:00 EDT, Gel, [id number], Partial fill upon patient request if the prescription is for a schedule II opioid drug., 1 application Vaginally Daily at bedti... Start Date: 02/03/22 Stop Date: 02/08/22 Status: OrderedVitamin B12 0 Refills, Maintenance, 04/06/22 18:23:00 EDT, Partial fill upon patient request if the prescriptionis for a schedule II opioid drug. Start Date: 04/06/22 Status: OrderedVitamin D3 5000 intl units oral capsule 1 capsule = 125 mcg, By Mouth, Daily, with food, # 60 capsule, 4 Refills, Maintenance, 06/19/21 14:47:00 EDT, Capsule, [id number], Partial fill upon patient request if the prescription is for aschedule II opioid drug., 158, cm, 06/19/21 14:19... Start Date: 06/19/21 Status: OrderedVoltaren 1% topical gel 1 application, Topically, 4 times a day, PRN for pain, # 100 Gm, 0 Refills, Maintenance, 04/06/22 18:55:00 EDT, Gel, [id number], Partial fill upon patient request if the prescription is for a schedule II opioid drug., 1 application Topically 4... Start Date: 04/06/22 Status: Ordered Problem List Condition Effective Dates Status Health Status Informant Morbid obesity with BMI of 45.0-49.9, Active adult(Confirmed) IUD migration(Confirmed) Active GERALDINE (obstructive sleep Active apnea)(Confirmed) Severe obesity(Confirmed) Active Social History Social History Type Response Smoking Status Never (less than 100 in life time) entered on: 07/17/19 Sex Care Team PersonnelName: Jaylene Vargas NP Address: [address] [place] [address]-
--- OUTSIDE RECORDS SUMMARY | 2022-08-17 09:43 | XMS_ITS | Continuity of Care Document ---
:1985 Author Organization [facility] Address Unavailable , Care Team Providers Name Role Phone Alicia GALVAN, Jaylene Primary Care Physician [place] [facility] [place] 06/02/21 [facility] Attending Physician: Zaynab Hurt MD Referring Physician: Mariia Bobby MD Allergies, Adverse Reactions, Alerts Substance Reaction Severity Status NKA Active Immunizations Given and Recorded Vaccine Date Status Refusal Reason influenza virus vaccine, inactivated1 06/05/14 Recorded tetanus/diphtheria/pertussis, acel(Tdap)2 06/05/14 Record ed 1Result Comment: [07/18/2014] Administered by NEELAM Marin.2Result Comment: [07/18/2014] Administered by NEELAM Marin. Medications Apri 0.15 mg-0.03 mg oral tablet 1 tablet, By Mouth, Daily, # 28 tablet, 3 Refills, Maintenance, 05/19/21 17:06:00 EDT, [facility]/pharmacy #[id number], Partial fill upon patient request if the prescription is for a schedule II opioid drug., 1 tablet By Mouth Daily, 158, cm, 05/14/21 10:11:00 EDT... Start Date: 05/19/21 Status: Ordered Problem List Condition Effective Dates Status Health Status Informant Morbid obesity with BMI of 45.0-49.9, Active adult(Confirmed) IUD migration(Confirmed) Active GERALDINE (obstructive sleep Active apnea)(Confirmed) Vital Signs Most recent to oldest [Reference Range]: 1 Height 158 cm (05/26/21 2:18 PM) Weight 108.3 kg (05/26/21 2:18 PM) Pulse Rate [55-90 bpm] 83 bpm (05/26/21 2:18 PM) Body Mass Index [18.5-24.99] 43.38 *>HHI* (05/26/21 2:18 PM) Blood Pressure [90-138/55-84 mm Hg] 99/61 mm Hg (05/26/21 2:18 PM) Blood pressure sites Arm, right (05/26/21 2:18 PM) Social History Social History Type Response Smoking Status Never (less than 100 in life time) entered on: 07/17/19 Sex
--- OUTSIDE RECORDS SUMMARY | 2022-08-17 09:43 | XMS_ITS | Continuity of Care Document ---
:1985 Author Organization [facility] Address Unavailable , Care Team Providers Name Role Phone Alicia GALVAN, Jaylene Primary Care Physician [place] [facility] [place] Date(s): 06/19/21 - 07/19/21 [facility] Attending Physician: Andre Mejia Admitting Physician: Andre [...] tablet, 6 Refills, Maintenance, 06/19/21 14:44:00 EDT, [facility]/pharmacy #[id number], Partial fill upon patient request if the prescription is for a schedule II o... Start Date: 06/19/21 Stop Date: 01/15/22 Status: OrderedVitamin D3 5000 intl units oral capsule 1 capsule = 125 mcg, By Mouth, Daily, with food, # 60 capsule, 4 Refills, Maintenance, 06/19/21 14:47:00 EDT, Capsule, [id number], Partial fill upon patient request if the [...]
--- OUTSIDE RECORDS SUMMARY | 2022-08-17 09:43 | XMS_ITS | Continuity of Care Document ---
:1985 Author Organization [facility] Address [address] [place] [address]- Care Team Providers Name Role Phone Alicia GALVAN, Jaylene Primary Care Physician Encounter [facility] [place] Date(s): 04/20/22 - 05/26/[address] [address] Encounter Diagnosis Procedure and treatment not carried out for other reasons (Final) - Discharge Disposition: A-D/C Home Attending Physician: Jaylene Vargas NP Admitting Physician: Jaylene Vargas NP Referring Physician: Jaylene Vargas NP Allergies, Adverse Reactions, Alerts No Known Allergies Immunizations Given and Recorded Vaccine Date Status Refusal Reason influenza virus vaccine, inactivated1 06/05/14 Recorded tetanus/diphtheria/pertussis, acel(Tdap)2 06/05/14 Record ed 1Result Comment: [07/18/2014] Administered by NEELAM Marin.2Result Comment: [07/18/2014] Administered by NEELAM Marin. Medications Apri 0.15 mg-0.03 mg oral tablet 1 tablet, By Mouth, Daily, # 84 tablet, 1 Refills, [facility] [id number], 84, TAKE 1 TABLET BY MOUTH EVERYDAY, [...] Care Team PersonnelName: Jaylene Vargas NP Address: [address] [place] [id number]
--- OUTSIDE RECORDS SUMMARY | 2022-08-17 09:43 | XMS_ITS | Continuity of Care Document ---
:1985 Author Organization [facility] Address Unavailable , Care Team Providers Name Role Phone Alicia GALVAN, Jaylene Primary Care Physician Encounter [facility] Date(s): 03/19/22 - 04/18/22 [facility] Allergies, Adverse Reactions, Alerts No Known Allergies Immunizations Given and Recorded Vaccine Date Status Refusal Reason influenza virus vaccine, inactivated1 06/05/14 Recorded tetanus/diphtheria/pertussis, acel(Tdap)2 06/05/14 Record ed 1Result Comment: [07/18/2014] Administered by NEELAM Marin.2Result Comment: [07/18/2014] Administered by NEELAM Mrain. Medications Apri 0.15 mg-0.03 mg oral tablet 1 tablet, By Mouth, Daily, # 84 tablet, 1 Refills, [facility] ST[facility] [id number], 84, TAKE 1 TABLET BY MOUTH EVERYDAY, [...] 6 Refills, Maintenance, 06/19/21 14:44:00 EDT, [id number], Partial fill upon patient request if the [...]
--- OUTSIDE RECORDS SUMMARY | 2022-08-17 09:43 | XMS_ITS | Continuity of Care Document ---
:1985 Author Organization [facility] Address Unavailable , Care Team Providers Name Role Phone Alicia GALVAN, Jaylene Primary Care Physician Encounter [facility] Date(s): 06/01/21 - 07/01/21 [facility] Allergies, Adverse Reactions, Alerts [...]
--- OUTSIDE RECORDS SUMMARY | 2022-08-17 09:43 | XMS_ITS | Continuity of Care Document ---
:1985 Author Organization [facility] Address [address] [address]- Care Team Providers Name Role Phone Alicia GALVAN, Jaylene Primary Care Physician Encounter [facility] Date(s): 11/28/20 - 12/28/20 [facility] [address] [email or web address] Allergies, Adverse Reactions, Alerts Substance Reaction Severity Status NKA Active Immunizations Given and Recorded Vaccine Date Status Refusal Reason influenza virus vaccine, inactivated1 06/05/14 Recorded tetanus/diphtheria/pertussis, acel(Tdap)2 06/05/14 Record ed 1Result Comment: [07/18/2014] Administered by ENELAM Marin.2Result Comment: [07/18/2014] Administered by NEELAM Marin. Problem List Condition Effective Dates Status Health Status Informant Morbid obesity with BMI of 45.0-49.9, Active adult(Confirmed) IUD migration(Confirmed) Active GERALDINE (obstructive sleep Active apnea)(Confirmed) Social History Social History Type Response Smoking Status Never (less than 100 in life time) entered on: 07/17/19 Sex
--- OUTSIDE RECORDS SUMMARY | 2022-08-17 09:43 | XMS_ITS | Continuity of Care Document ---
:1985 Author Organization [facility] Address Unavailable , Care Team Providers Name Role Phone Alicia GALVAN, Jaylene Primary Care Physician Encounter [facility] Date(s): 01/20/22 - 02/19/22 [facility] Allergies, Adverse Reactions, Alerts No Known Allergies Immunizations Given and Recorded Vaccine Date Status Refusal Reason influenza virus vaccine, inactivated1 06/05/14 Recorded tetanus/diphtheria/pertussis, acel(Tdap)2 06/05/14 Record ed 1Result Comment: [07/18/2014] Administered by NEELAM Marin.2Result Comment: [07/18/2014] Administered by NEELAM Marin. Medications Apri 0.15 mg-0.03 mg oral tablet 1 tablet, By Mouth, Daily, # 84 tablet, 1 Refills, [facility] ST[facility] [id number], 84, TAKE 1 TABLET BY MOUTH EVERYDAY, [...] 6 Refills, Maintenance, 06/19/21 14:44:00 EDT, [id number], Partial fill upon patient request if the [...] Date: 02/03/22 Stop Date: 02/08/22 Status: OrderedVitamin D3 5000 intl units oral [...]
--- OUTSIDE RECORDS SUMMARY | 2022-08-17 09:43 | XMS_ITS | Continuity of Care Document ---
:1985 Author Organization [facility] Address [address] [place] [address]- Care Team Providers Name Role Phone Alicia GALVAN, Jaylene Primary Care Physician [place] [facility] [place] Date[place] 05/20/22 - 06/19/[address] [address] Attending Physician: Andre Mejia Admitting Physician: Andre Mejia Referring Physician: AdmtrAndre Allergies, Adverse Reactions, Alerts No Known Allergies Immunizations Given and Recorded Vaccine Date Status Refusal Reason influenza virus vaccine, inactivated1 06/05/14 Recorded tetanus/diphtheria/pertussis, acel(Tdap)2 06/05/14 Record ed 1Result Comment: [07/18/2014] Administered by NEELAM Marin.2Result Comment: [07/18/2014] Administered by NEELAM Marin. Medications Apri 0.15 mg-0.03 mg oral tablet 1 tablet, By Mouth, Daily, # 84 tablet, 1 Refills, [facility] 22426, 84, TAKE 1 TABLET BY MOUTH EVERYDAY, [...] Date: 04/06/22 Status: Ordered Problem List Condition Confirmation Course Effective Dates Status Health Stat us Informant Morbid obesity Confirmed Active with BMI of 45.0-49.9, adult IUD migration Confirmed Active GERALDINE (obstructive Confirmed Active sleep apnea) Severe obesity Confirmed Active Social History Social History Type Response Smoking Status Never (less than 100 in life time) entered on: 07/17/19 Sex Patient Care team information PersonnelName: Jaylene Vargas NP Address: Address: [address] [place] [address]- [place]
--- OUTSIDE RECORDS SUMMARY | 2022-08-17 09:43 | XMS_ITS | Continuity of Care Document ---
:1985 Author Organization [facility] Address [address] [address]- Care Team Providers Name Role Phone Alicia GALVAN, Jaylene Primary Care Physician [place] [facility] [place] 02/22/[place] [facility] [address] [address] [...]
--- OUTSIDE RECORDS SUMMARY | 2022-08-17 09:43 | XMS_ITS | Continuity of Care Document ---
:1985 Author Organization [facility] Address [address] [address]- Care Team Providers Name Role Phone Alicia GALVAN, Jaylene Primary Care Physician [place] [facility] [place](s): 12/17/20 - 01/16/21 [facility] [address] [address] Attending Physician: Andre Mejia Admitting Physician: Andre Mejia Referring Physician: trAndre Allergies, Adverse Reactions, Alerts Substance Reaction Severity Status NKA Active Immunizations Given and Recorded Vaccine Date Status Refusal Reason influenza virus vaccine, inactivated1 06/05/14 Recorded tetanus/diphtheria/pertussis, acel(Tdap)2 06/05/14 Record ed 1Result Comment: [07/18/2014] Administered by NEELAM Marin.2Result Comment: [07/18/2014] Administered by NEELAM Marin. Medications Lotrisone 0.05%-1% cream 1 application, Topically, 2 times a day, # 15 Gm, 0 Refills, Acute 02/16/21 12:07:00 EDT, 01/16/21 12:07:00 EDT, Cream, [id number], Partial fill upon patient request if the prescription is for a schedule II opioid drug., 1 application Topicall... Start Date: 01/16/21 Stop Date: 02/16/21 Status: Ordered Problem List Condition Effective Dates Status Health Status Informant Morbid obesity with BMI of 45.0-49.9, Active adult(Confirmed) IUD migration(Confirmed) Active GERALDINE (obstructive sleep Active apnea)(Confirmed) Social History Social History Type Response Smoking Status Never (less than 100 in life time) entered on: 07/17/19 Sex
--- OUTSIDE RECORDS SUMMARY | 2022-08-17 09:43 | XMS_ITS | Continuity of Care Document ---
:1985 Author Organization [facility] Address Unavailable , Care Team Providers Name Role Phone Alicia GALVAN, Jaylene Primary Care Physician [place] [facility] [place] 07/19/21 [facility] Attending Physician: Not on Staff, Attending MD Referring Physician: Mariia Bobby MD Allergies, [...] tablet, 6 Refills, Maintenance, 06/19/21 14:44:00 EDT, [facility]/pharmacy #[id number], Partial fill upon patient request if the prescription is for a schedule II o... Start Date: 06/19/21 Stop Date: 01/15/22 Status: OrderedVitamin D3 5000 intl units oral capsule 1 capsule = 125 mcg, By Mouth, Daily, with food, # 60 capsule, 4 Refills, Maintenance, 06/19/21 14:47:00 EDT, Capsule, [id number], Partial fill upon patient request if the [...]
--- OUTSIDE RECORDS SUMMARY | 2022-08-17 09:43 | XMS_ITS | Continuity of Care Document ---
:1985 Author Organization [facility] Address Unavailable , Care Team Providers Name Role Phone Alicia GALVAN, Jaylene Primary Care Physician [place] [facility] [place](s[place] 05/14/21 - 05/21/21 [facility] Attending Physician: Mariia Bobby MD [...] tablet, 3 Refills, Maintenance, 05/19/21 17:06:00 EDT, [facility]/pharmacy #[id number], Partial fill upon patient request if the prescription is for a schedule II opioid drug., 1 tablet By Mouth Daily, 158, cm, 05/14/21 10:11:00 EDT... Start Date: 05/19/21 Status: Ordereddoxycycline hyclate 100 mg oral capsule 1 capsule = 100 mg, By Mouth, 2 times a day, for 5 days, start 2 days before HSG, day of HSG, then 2days after HSG, # 10 capsule, 0 Refills, Acute 05/24/21 17:06:00 EDT, 05/19/21 17:06:00 EDT, [id number], Partial fill upon patient request if... Start Date: 05/19/21 Stop Date: 05/24/21 Status: Ordered Problem List Condition Effective Dates Status Health Status Informant Morbid obesity with BMI of 45.0-49.9, Active adult(Confirmed) IUD migration(Confirmed) Active GERALDINE (obstructive sleep Active apnea)(Confirmed) Vital Signs Most recent to oldest [Reference Range]: 1 Height 158 cm (05/14/21 10:11 AM) Weight 107.7 kg (05/14/21 10:11 AM) Pulse Rate [55-90 bpm] 70 bpm (05/14/21 10:11 AM) Body Mass Index [18.5-24.99] 43.14 *>HHI* (05/14/21 10:11 AM) Blood Pressure [90-138/55-84 mm Hg] 118/87 mm Hg (05/14/21 10:11 AM) Blood pressure sites Arm, right (05/14/21 10:11 AM) Weight Obtained Via Standing scale (05/14/21 10:11 AM) Social History Social History Type Response Smoking Status Never (less than 100 in life time) entered on: 07/17/19 Sex
--- OUTSIDE RECORDS SUMMARY | 2022-08-17 09:43 | XMS_ITS | Continuity of Care Document ---
:1985 Author Organization [facility] Address [address] [address]- Care Team Providers Name Role Phone Jaylene Vargas NP Primary Care Physician [place] [facility] [place] 02/12/21 [facility] [address] [address] Allergies, Adverse Reactions, Alerts Substance Reaction Severity [...] 02/16/21 12:07:00 EDT, 01/16/21 12:07:00 EDT, Cream, [facility]/pharmacy #[id number], Partial fill upon patient request if the [...]
--- OUTSIDE RECORDS SUMMARY | 2022-08-17 09:44 | XMS_ITS | Continuity of Care Document ---
:1985 Author Organization [facility] Address Unavailable , Care Team Providers Name Role Phone Alicia GALVAN, Jaylene Primary Care Physician Encounter [facility] Date(s): 06/09/21 - 07/09/21 [facility] Allergies, Adverse Reactions, Alerts Substance [...]
--- OUTSIDE RECORDS SUMMARY | 2022-08-17 09:44 | XMS_ITS | Continuity of Care Document ---
:1985 Author Organization [facility] Address Unavailable , Care Team Providers Name Role Phone Alicia GALVAN, Jaylene Primary Care Physician Encounter [facility] Date(s): 06/04/21 - 06/11/21 [facility] Attending Physician: Miranda Woodruff MD Referring Physician: Mariia Bobby MD Allergies, [...] tablet, 3 Refills, Maintenance, 05/19/21 17:06:00 EDT, [id number], Partial fill upon patient request if the prescription is for a schedule II opioid drug., 1 tablet By Mouth Daily, 158, cm, 05/14/21 10:11:00 EDT... Start Date: 05/19/21 Status: OrderedValium 5 mg oral tablet See Instructions, 1 tablet By Mouth 1 hour before procedure (must have someone drive you), # 2 tablet, Refills 0, Tot. Refills 0, Maintenance, 06/03/21 9:18:00 EDT, Instructions Replace Required Details, Route to Pharmacy Electronically, [facility] Start Date: 06/03/21 Status: Ordered Problem List Condition Effective Dates Status Health Status Informant Morbid obesity with BMI of 45.0-49.9, Active adult(Confirmed) IUD migration(Confirmed) Active GERALDINE (obstructive sleep Active apnea)(Confirmed) Social History Social History Type Response Smoking Status Never (less than 100 in life time) entered on: 07/17/19 Sex
--- OUTSIDE RECORDS SUMMARY | 2022-08-17 09:44 | XMS_ITS | Continuity of Care Document ---
:1985 Author Organization [facility] Address [address] [address]- Care Team Providers Name Role Phone Alicia GALVAN, Jaylene Primary Care Physician Encounter [facility] Date(s): 01/28/21 - 02/27/21 [facility] [address] [id number] Allergies, Adverse Reactions, Alerts Substance Reaction Severity Status NKA Active Immunizations Given and Recorded Vaccine Date Status Refusal Reason influenza virus vaccine, inactivated1 06/05/14 Recorded tetanus/diphtheria/pertussis, acel(Tdap)2 06/05/14 Record ed 1Result Comment: [07/18/2014] Administered by NEELAM Marin.2Result Comment: [07/18/2014] Administered by NEELAM Mairn. Problem List Condition Effective Dates Status Health Status Informant Morbid obesity with BMI of 45.0-49.9, Active adult(Confirmed) IUD migration(Confirmed) Active GERALDINE (obstructive sleep Active apnea)(Confirmed) Social History Social History Type Response Smoking Status Never (less than 100 in life time) entered on: 07/17/19 Sex
[2022-08-17 09:56] LABS: UPreg QC Valid YES; Urine Pregnancy NEGATIVE (NEGATIVE)
[2022-08-17] MEDS: Lactated Ringers 1,000 ML 999 ML IV (10:20)
--- NOTE | 2022-08-17 10:22 | P.BOP_ITS ---
Brief Operative Note Date of Service: 08/17/22 Pre-op diagnosis: GERD, morbid obesity Post-op diagnosis: same Procedure: PROCEDURE: Lnlbtfvg-rrpgen-iydqqdtpgeo, laparoscopic lysis of adhesions INDICATIONS: This is a 36 year-old female with a BMI of 46.7 kg/m2, history of failed gastric bypass surgery and associated comorbid conditions as described previously. After appropriate workup and a 25 lbs preoperative weight loss was performed, the patient was electively scheduled for laparoscopic, possibly open sleeve gastrectomy of the gastric pouch. The risks and complications of the procedure were discussed with the patient in advance, particularly the possibility of ; pulmonary embolism; staple line leak; bleeding; GERD; cardiac, pulmonary, or renal complications; as well as long-term problems such as insufficient weight loss, vitamin deficiency, strictures, or ulcers. We also discussed the possibility of not being able to complete the surgery if I felt that her anatomy was not favorable to do this safely. The patient understood all the risks, and was in agreement to proceed with surgery. DESCRIPTION OF PROCEDURE: After informed consent was obtained from the patient, the patient was given preoperative antibiotics, and was transferred to the operating room. After successful induction of general anesthesia, pneumatic compressive devices were placed on both lower extremities. An upper endoscopy was performed next. The oropharynx and esophagus appeared to be within normal limits. There was a diaphragmatic hernia present of moderate size consistent with the findings of the preoperative upper GI. The stomach was entered. Then after all fluid and air were suctioned and the stomach was fully decompressed, the scope was withdrawn and secured in the mid esophagus. The patient was then prepped and draped in the usual sterile manner, and abdominal access was established at the right upper quadrant with the Lorri technique. A 12 mm blunt port was inserted, and the abdomen was insufflated with CO2 to a pressure of 15 mmHg. Under direct visualization, additional ports were placed, specifically two 5 mm Versi-step ports to the left upper quadrant, and a 5 mm Versi-Step port to the right upper quadrant. 1% lidocaine plain was used to infiltrate all port sites as well as all fascia defects. Following that, the patient was placed in a steep reverse Trendelenburg position. An additional 5 mm port was placed to the right flank for the Mediflex retractor that was used to retract the left lobe of the liver. The retractor could not be placed at the usual position because the entire left lobe of the liver was adhrerent to stomach and Ashley limb. Some of these adhesions between the undersurface of the left lobe of the liver were lysed with the Thunderbeat. However, most of them could not be lysed safely as the Ashley limb was densely adherent to the undersurface of the liver. I proceeded more cephalad and some of the more proximal adhesions to the liver were lysed. There were extensive omental fat adhesions to the gastric pouch. which were lysed allowing us to see the edge of the gastric pouch. I continued by dissecting between the gastric remnant and the gastric pouch. Separation of the gastric pouch from the gastric remnant was difficult but I was able to seperate them. At that point I noted that the gastric pouch and gastric remnant were densely attached to the spleen without a clear plane. Given that we did not have adequate exposure due to the patient's anatomy and not being able to reposition the liver retractor adequately, I decided not to proceed with further dissection as I felt there was a considerable risk for splenic injury and significant bleeding. I looked into the lesser sac to see how the sleeve was situating and it was situating well. There was no bleeding from the staple line, spleen, or short gastric vessels. The Mediflex retractor was removed, and the undersurface of the liver was inspected and there was no bleeding. The patient was placed in supine position. A 15Fr Holger drain was placed at the space between the gastric pouch and the gastric remnant that was secured with a 0 Maxon suture I closed the fascial defect of the 12 mm port site with a figure of eight #1 Polysorb suture. Then 30 cc Ropivacaineplain with 10 mg of Dexamethasone were used to infiltrate the fascial closure as well as all skin incisions. At this point, the abdomen was deflated, all ports were removed under direct vision, and no bleeding was noted from any of the port sites. The skin incisions were irrigated with saline and were closed with 4-0 absorbable monofilament sutures. Steri-Strips and OpSites were used to cover all incisions. The patient was extubated and was transferred in stable condition to the recovery room for further care. I was present and performed all miner parts of the procedure. Ms. Vo was the certified surgical tech/first assistant. There were no residents to assist with this case. Marlon Bourgeois MD, PhD, FACS Surgeon: Torres Bourgeois MD Anesthesia: GETA, local and other (TAP block and Zynrelef) Was an Electrician Master used for this Procedure?: No Electrician Master: Ann Vo Estimated blood loss (mL): 10 IV fluids (mL): 2,500 Urine output (mL): 0 (No Carlton to record) Pathology: none sent Condition: stable Disposition: PACU
--- NOTE | 2022-08-17 10:24 | PM.PNGS ---
Subjective Subjective Date of Service: 08/18/22 Interval history: Patient has mild incisional pain, but was able to ambulate and use the incentive spirometer. She is tolerating phase 1 bariatric diet Physical Exam Vital Signs: Vital Signs: Last Vital Signs Temp 98.0 F 08/17/22 09:39 Pulse 52 08/17/22 09:39 Resp 15 08/17/22 09:39 BP 121/71 08/17/22 09:39 Pulse Ox 99 08/17/22 09:39 O2 Del Method 08/17/22 09:39 BMI result Body Mass Index 41.8 GI: Inspection: Yes normal to inspection, Yes incision (clean, dry and intact) and Yes obesity Palpation (GI): Soft to palpation Extrem: Right lower extremity: normal to inspection (no calf tenderness) Left lower extremity: normal to inspection (no calf tenderness) Objective Data Active Medications Lactated Ringer's (Lr) 1,000 mls @ 100 mls/hr IVCONT .Q10H KATHY Lactated Ringer's (Lr) 1,000 mls @ 999 mls/hr IV .Q1H1M KATHY Stop: 08/17/22 11:45 Last Admin: 08/17/22 10:20 Dose: 999 mls/hr Documented By: MAIN Labs CBC & Chem 7: 08/18/22 05:52 08/18/22 05:52 Labs: Laboratory Results - last 24 hr 08/17/22 09:35 Urine Test NEGATIVE Procedures Date of Service Date of Service: 08/18/22 Progress Note: A&P Assessment and plan (1) Morbid obesity: Status: Acute Assessment and Plan: s/p laparoscopic lysis of adhesions Doing well Check am labs. If OK, will discharge home? (2) GERD (gastroesophageal reflux disease): Status: Acute (3) S/P gastric bypass: Status: Acute (4) Cholelithiasis: Status: Acute (5) Liver fibrosis: Status: Acute (6) S/P laparoscopic procedure: Status: Acute (7) Intra-abdominal adhesions: Status: Acute Time Spent With Patient Time: Total time managing care of this patient today ____ minutes. Quality Stroke Does the patient have a stroke diagnosis?: No VTE Prior VTE?: No VTE Risk Level:: Surgical - moderate VTE Device Contraindication: N/A - Device Ordered VTE Drug Contraindication: Treatment Not Indicated
--- NOTE | 2022-08-17 13:49 | P.DS_ITS ---
DS: Providers Provider Date of Service: 08/18/22 Primary care physician: Jaylene Vargas NP DS: Diagnosis Discharge Diagnosis (1) Morbid obesity: Status: Acute (2) GERD (gastroesophageal reflux disease): Status: Acute (3) S/P gastric bypass: Status: Acute (4) Cholelithiasis: Status: Acute (5) Liver fibrosis: Status: Acute DS: Summary Hospital Course Hospital Course: ADMITTING DIAGNOSIS: morbid obesity, s/p gastric bypass DISCHARGE DIAGNOSIS: same, s/p laparoscopic laparoscopic lysis of adhesions PAST SURGICAL HISTORY: gastric bypass, section PROCEDURE: upper endoscopy, laparoscop lysis of adhesions DISCHARGE SUMMARY: History of Present Illness: The patient is a 36 year-old woman with a BMI of 47.0 kg/m2 and associated co-mo rbidities as described above. The patient had extensive work-up, lost 25 lbs preoperatively and was electively scheduled for laparoscopic, possible open sleeve gastrectomy and gastropexy. Risks and complications of the surgery were discussed with the patient in advance, particularly the possibility of , pulmonary embolism, anastomotic leak, bleeding, bowel injury, GERD, cardiac, renal or pulmonary complications. The patient understood all the risks and was in agreement with the surgical plan. Hospital Course: The patient underwent an uneventful laparoscopic lysis of adhesions (unable to perform sleeve gastrectomy due to dense adhesions to spleen and liver) on the day of admission. TAYO drain was left in gutter between remnant and gastric pouch. Postoperatively, the patient was transferred to the surgical floor. The patient received IV Acetaminophen and IV dilaudid for pain control. Patient was kept NPO on POD # 0. On postoperative day one, the patient was feeling well without naus ea, vomiting, fevers, or tachycardia. The patient had some mild incisional pain and the abdomen was soft. On the morning of postoperative day one she was started on bariatric diet phase 3. TAYO drain had scant fluid. During the day, the patient did fairly well, having some incisional pain, but able to ambulate adequately and to tolerate liquids well. Since the patient is doing well, we decided that the patient was ready to be discharged. The patient was given instructions to follow-up with me next week and to call my office for any fever over 101, persistent abdominal pain, nausea, vomiting, GERD, symptoms of DVT such as calf tenderness, or leg swelling, or pulmonary embolism such as chest pain or shortness of breath. The patient was also instructed to drink 40-60 ounces of liquids per day using the 1-ounce cups. The patient had been given prescriptions for Tylenol for pain, Zofran prn for nausea, and pantoprazole and carafate previously. The patient was encouraged to ambulate and use the incentive spirometer. The patient was allowed to shower, but no baths, and encouraged to stay active at home. All of these instructions were given to the patient personally. All questions were answered and the patient understood all instructions, the instructions were also given to the patient in print. Time Spent with Patient Time attestation: Total time managing care of this patient today ____ minutes. Discharge coordination time: Less than 30 minutes Quality: Safe Use of Opioids Does Pt have an Active Cancer Diagnosis on the Problem List?: No Quality: Stroke Does the patient have a stroke diagnosis?: No Physical Exam Vital Signs: Vital Signs: Last Vital Signs Temp 98.0 F 08/17/22 09:39 Pulse 52 08/17/22 09:39 Resp 15 08/17/22 09:39 BP 121/71 08/17/22 09:39 Pulse Ox 99 08/17/22 09:39 O2 Del Method 08/17/22 09:39 BMI result Body Mass Index 41.8 DS: Data Data Completed and Pending Labs on day of discharge: Laboratory Results - last 24 hr 08/17/22 09:35 Urine Test NEGATIVE Discharge Plan Discharge Anticipated Discharge Date/Time: 08/18/22 10:14 Patient Disposition: Home, Self-Care Discharge Diagnosis: s/p laparoscopic lysis of adhesions Referrals: Jaylene Vargas NP [Primary Care Provider] - 1 Week Discharge Medications: Continued cholecalciferol (vitamin D3) 50 mcg (2,000 unit) capsule 50 mcg PO DAILY Qty: 30 5RF cyanocobalamin (vitamin B-12) 500 mcg tablet 500 mcg PO DAILY Qty: 30 5RF Galzin 25 mg (zinc) capsule 25 mg PO DAILY Qty: 30 5RF pantoprazole 40 mg tablet,delayed release (DR/EC) 40 mg PO DAILY Qty: 30 2RF sucralfate 100 mg/mL suspension 10 ml PO BID Qty: 400 2RF ondansetron HCl 4 mg tablet 4 mg PO Q12H Qty: 20 0RF Discontinued polyethylene glycol 3350 [Miralax] 17 gram powder in packet 17 g PO DAILY Qty: 14 0RF Rx Instructions: Mix each packet with 8oz of water and do 7 packets on 08/15/22 and another 7 packets on 08/16/22 Discharge Orders: Discharge Order (Routine); Ordered 08/18/22 Ordered By: Dustin Duran Activity on Discharge: No heavy lifting Activity Restrictions/Additional Instructions: No tub baths, sex or returning to work until discussed at first post op appointment. No exercise, alcohol, tobacco or illegal drug use. Continue to use incentive spirometer hourly while awake. Walk in home for 5- 10 minutes every 2 hours during the first week. Continue phase 1 diet today and start phase 2 diet tomorrow morning. Follow all instructions in the bariatric handbook and call with any questions. 1. Please call your doctor or come back to the emergency room should any new symptoms arise. 2. You will receive a courtesy call from [facility] 24-48 hours after discharge. 3. Activity: abstain from alcohol, practice limited stair climbing, no bending, no driving, no exercise, no illicit substances, no lifting, no sex, no tub bath, no work. 4. Diet: continue as discussed with bariatric team.. 5. Dressing Change/Wound Care: Do not change or remove surgical dressings unless they are wet or soiled. 6. Call your doctor if: - Your temperature exceeds 101.5 F - You experience excessive pain or swelling - You have an unexpected reaction to medication - You have excessive bleeding - You experience continued vomiting/nausea - Your incision begins to separate - Your incision shows signs of infection such as increased redness, swelling, excessive pain, heat, or drainage (light blood or clear fluid is normal) 7. General instructions: No lifting greater than 5 lbs for the next 4 weeks[address] within 24 hours of taking narcotic pain medications. If you do not move your bowels in the next 2 days, please take milk of magnesia over the counter. Please follow the post op diet and do not advance your diet until you are seen in the office in about 2 weeks. Please walk around your home every hour or two to prevent blood clots from forming in your legs. You do not need to wake from sleeping to walk. Please sleep in a bed or couch to prevent kinking at the hips and knees. Please take your incentive spirometer (your lung stemhole borer and topper) home with you and use it for the next few days to prevent pneumonias. You may shower, no hot tubs, baths or swimming pools. Please call the office with any questions or concerns such as increasing abdominal pain, fever, chills, shortness of breath, chest pain, leg pain or swelling, or redness or drainage from your incisions. Do not hesitate to contact the office with any questions at . The patient's medical history has been reviewed and they are considered low risk for post op DVT and therefore DVT prophylaxis is not considered necessary. Travel after surgery was reviewed. The patient has not disclosed any travel plans during the first 30 days after surgery and they have been advised that within the first 30 days after surgery any bus, plane, train or car travel over 2 hours in duration is contraindicated due to the possibility of developing blood clots from immobility. Any travel, needs to include periods of ambulation of 10 minutes in duration every 2 hours. The patient was instructed to discuss any plans for travel during this period with their bariatric surgeon. Care Plan Goals: weight loss Health Concerns: obesity s/p GBP Plan of Treatment: see above Assessment: stable s/o NICHOLAS Discharge Date/Time: 08/18/22 13:10
[2022-08-17 14:48] LABS: Hematocrit 40.8 % (37.0-47.0); Hemoglobin 13.2 g/dl (12.0-16.0)
[2022-08-17] MEDS: Famotidine/PF 20 MG/2 ML VIAL IVPUSH ×2 (15:11→20:22)
[2022-08-17] MEDS: Lactated Ringers 1,000 ML 125 ML IVCONT ×2 (15:16→22:21)
--- OUTSIDE RECORDS SUMMARY | 2022-08-17 15:30 | XMS_ITS | Continuity of Care Document ---
:1985 Author Organization [facility] Address [address] [place] [address]- Care Team Providers Name Role Phone Alicia GALVAN, Jaylene Primary Care Physician Encounter [facility] Date(s): 03/20/21 - 04/19/21 [facility] [address] [place], [place] [address] Allergies, Adverse Reactions, Alerts Substance Reaction [...]
--- OUTSIDE RECORDS SUMMARY | 2022-08-17 15:30 | XMS_ITS | Continuity of Care Document ---
:1985 Author Organization [facility] Address Unavailable , Care Team Providers Name Role Phone Alicia GALVAN, Jaylene Primary Care Physician Encounter [facility] Date(s): 05/18/21 - 06/17/21 [facility] Allergies, Adverse Reactions, Alerts [...] 3 Refills, Maintenance, 05/19/21 17:06:00 EDT, [id number], Partial fill upon patient request if the [...]
--- OUTSIDE RECORDS SUMMARY | 2022-08-17 15:30 | XMS_ITS | Continuity of Care Document ---
:1985 Author Organization [facility] Address Unavailable , Care Team Providers Name Role Phone Alicia GALVAN, Jaylene Primary Care Physician Encounter [facility] Date(s): 01/26/22 - 02/25/22 [facility] Attending Physician: Andre Mejia Admitting Physician: Andre [...] Mouth, Daily, # 84 tablet, 1 Refills, [id number], 84, TAKE 1 TABLET BY MOUTH EVERYDAY, [...]
[2022-08-17 15:59] LABS: Anion Gap 16 (12-20); Blood Urea Nitrogen 5 mg/dL (9-16); Calcium 8.7 mg/dL (8.4-10.2); Carbon Dioxide 21 mmol/L (22-29); Chloride 105 mmol/L (96-108); Creatinine Clr Calc Pharmacy 92.1; Estimated Glomerular Filt Rate > 60; Glucose Random 115 mg/dL (60-115); Potassium 3.6 mmol/L (3.3-5.1); Sodium 138 mmol/L (135-145)
[2022-08-17] MEDS: ceFAZolin Sodium/Dextrose,Iso 2 GM/50 ML PIGGYBACK IV (16:42)
[2022-08-17] MEDS: Acetaminophen 1,000 MG/100 ML PIGGYBACK 16.7 MG IV ×2 (17:45→22:21)
[2022-08-17] MEDS: ondansetron HCL 4 MG/2 ML VIAL IVPUSH (20:22)
[2022-08-17] MEDS: 0.9 % Sodium Chloride Flush 3 ML SYRINGE IVFLUSH (20:23)
[2022-08-18 03:50] VITALS: BP 95/52; PULSE 55; RESP 18; TEMP 36.8; O2SAT 97
[2022-08-18] MEDS: ondansetron HCL 4 MG/2 ML VIAL IVPUSH (03:50)
[2022-08-18] MEDS: Acetaminophen 1,000 MG/100 ML PIGGYBACK 16.7 MG IV (03:50)
[2022-08-18] MEDS: Lactated Ringers 1,000 ML 125 ML IVCONT (05:29)
[2022-08-18 07:00] LABS: MANUAL DIFF FLAG NO
[2022-08-18] MEDS: Famotidine/PF 20 MG/2 ML VIAL IVPUSH (07:09)
[2022-08-18 07:21] LABS: Basophils Percent Auto 0.2 % (0-2); Hematocrit 37.8 % (37.0-47.0); Hemoglobin 12.1 g/dl (12.0-16.0); Imm Gran Abs Auto 0.03 X10*3/uL (0.00-0.03); Imm Gran Pct Auto 0.5 % (0.0-0.4); Lymphocytes Absolute Auto 0.7 X10*3/uL (1.2-4.9); Lymphocytes Percent Auto 12.5 % (20-40); Mean Corpuscular Hemoglobin 30.7 pg (27.0-33.0); Mean Corpuscular Volume 95.9 fL (80.0-98.0); Mean Platelet Volume 10.9 fL (9.4-12.3); Monocytes Absolute Auto 0.3 X10*3/uL (0.1-1.2); Monocytes Percent Auto 5.3 % (2-11); Neutrophils Absolute Auto 4.8 x10*3/uL (2.0-8.3); Neutrophils Percent Auto 81.5 % (45-73); Platelet Count 247 X10*3/uL (160-400); Red Blood Count 3.94 X10*6/uL (4.20-5.50); Red Cell Distribution Width 14.6 % (11.0-16.0); White Blood Count 5.9 X10*3/uL (4.8-10.8)
[2022-08-18 07:24] LABS: Anion Gap 15 (12-20); Blood Urea Nitrogen 5 mg/dL (9-16); Calcium 8.9 mg/dL (8.4-10.2); Carbon Dioxide 22 mmol/L (22-29); Chloride 105 mmol/L (96-108); Creatinine Clr Calc Pharmacy 100.3; Estimated Glomerular Filt Rate > 60; Glucose Random 98 mg/dL (60-115); Potassium 4.4 mmol/L (3.3-5.1); Sodium 138 mmol/L (135-145)
[2022-08-18 08:00] VITALS: BP 112/64; PULSE 73; RESP 18; TEMP 36.9; O2SAT 98
--- NOTE | 2022-08-18 08:00 | HO.POSTANES ---
Post Anesthesia Evaluation Post Anesthesia Evaluation Vital Signs: Patient seen on 08/18/22 0800am 112/64, 73, 18, 98.5F, 98%RA Anesthesia: General Endotracheal-GETA Mental Status: Awake Pain Control: Satisfactory Nausea/Vomiting: None Hydration: Adequate Anesthesia-Related Issues: No Anes. Related Issues
[2022-08-18 10:44] VITALS: O2SAT 98
--- NOTE | 2022-08-18 15:37 | MHC.CM.PN ---
EMR REVIEWED, CM MET W/PT WHO REPORTS SHE IS INDEP W/ALL CARE, DENIES USE OF DE/HOME SERVICES, PT RPEORTS HER FOLLOW-UP IS 08/24, PCPLEONEL ABEBE, NOEL X3, HCP PT'S GRANDMOTHER CHELSEA DURHAM [phone], COPY REQUESTED. D/C HOME TODAY W/NO SERVICES W/PT ARRANGED TRANSPORT
== END 2022-08-18 13:10 | disposition home or self-care (01) | DRG 224 ==
LOC: HO.SSS 13:48 → HO.S3 15:28
PROVIDERS: Nurse Practitioner; Physician Assistant; Physician Assistant Surgical; Admitting Provider Surgery; PCP Nurse Practitioner Family; Visit Provider Surgery
PROC: 0DQ64ZZ Repair Stomach, Percutaneous Endoscopic Approach (ICD-10-PCS; CPT 43771; principal; 2022-08-17 10:50)
DX: K66.0 Peritoneal adhesions (postprocedural) (postinfection) (principal); Z68.42 Body mass index [BMI] 45.0-49.9, adult; E66.01 Morbid (severe) obesity due to excess calories; K21.9 Gastro-esophageal reflux disease without esophagitis; Z20.822 Contact with and (suspected) exposure to COVID-19; Z98.84 Bariatric surgery status; Z79.899 Other long term (current) drug therapy
CPT/HCPCS: 36415; 80048; 80053; 80061; 81025; 83036; 83525; 84443; 85014; 85018; 85025; 85610; 85730; 86140; 86850; 86900; 86901; 87635; C9088; J0131; J0690; J1100; J1170; J2250; J2370; J2405; J2550; J2795; J3010

== ENCOUNTER → 2022-08-24 13:08 | Outpatient (BNVA) | payer OTHER, SELFPAY | PROVIDERS: PCP Nurse Practitioner Family; Referring Provider Nurse Practitioner Family; Visit Provider Physician Assistant Surgical | DX: Z13.89 Encounter for screening for other disorder (principal) ==

== ENCOUNTER → 2022-09-10 10:08 | Outpatient (BNVA) | payer OTHER, SELFPAY | PROVIDERS: PCP Nurse Practitioner Family; Visit Provider Physician Assistant | DX: Z13.89 Encounter for screening for other disorder (principal) ==

== ENCOUNTER → 2022-09-24 10:42 | Outpatient (BNVA) | payer OTHER, SELFPAY | PROVIDERS: PCP Nurse Practitioner Family; Visit Provider Dietitian, Registered | DX: E66.9 Obesity, unspecified (principal); Z68.41 Body mass index [BMI] 40.0-44.9, adult | CPT/HCPCS: 97803 ==

== ENCOUNTER → 2022-10-01 09:08 | Outpatient (BNVA) | payer OTHER, SELFPAY | PROVIDERS: PCP Nurse Practitioner Family; Visit Provider Physician Assistant | DX: E66.01 Morbid (severe) obesity due to excess calories (principal); Z98.890 Other specified postprocedural states; Z68.41 Body mass index [BMI] 40.0-44.9, adult | CPT/HCPCS: 99212 ==

== ENCOUNTER → 2022-11-01 10:36 | Outpatient (BNVA) | payer OTHER, SELFPAY | PROVIDERS: PCP Nurse Practitioner Family; Visit Provider Physician Assistant | DX: E66.01 Morbid (severe) obesity due to excess calories (principal); K21.9 Gastro-esophageal reflux disease without esophagitis; Z68.39 Body mass index [BMI] 39.0-39.9, adult; Z98.84 Bariatric surgery status | CPT/HCPCS: 99212 ==

== ENCOUNTER → 2022-12-06 10:42 | Outpatient (BNVA) | payer MEDICAID, SELFPAY | PROVIDERS: PCP Nurse Practitioner Family; Visit Provider Physician Assistant | DX: E66.01 Morbid (severe) obesity due to excess calories (principal); Z68.39 Body mass index [BMI] 39.0-39.9, adult; Z98.84 Bariatric surgery status | CPT/HCPCS: 99212 ==

== ENCOUNTER → 2023-01-19 13:30 | Outpatient (BNVA) | payer MEDICAID, SELFPAY | PROVIDERS: PCP Nurse Practitioner Family; Visit Provider Physician Assistant ==

== ENCOUNTER → 2023-02-04 14:17 | Outpatient (BNVA) | payer OTHER, MEDICAID, SELFPAY | PROVIDERS: PCP Nurse Practitioner Family; Visit Provider Counselor Mental Health ==

== ENCOUNTER → 2023-02-15 14:38 | Outpatient (BNVA) | payer MEDICAID, SELFPAY | PROVIDERS: PCP Nurse Practitioner Family; Visit Provider Physician Assistant | DX: E66.9 Obesity, unspecified (principal); Z98.84 Bariatric surgery status; Z68.37 Body mass index [BMI] 37.0-37.9, adult | CPT/HCPCS: 99212 ==

== ENCOUNTER 2023-02-25 12:12 | Outpatient (AMB) | payer OTHER, MEDICAID, SELFPAY ==
--- NOTE | 2023-02-25 12:27 | MHC.WMTHER ---
Intake Intake Visit Reasons: (OV) PO LSG 08/17/22 Allergies No Known Allergies Allergy (Verified 02/15/23 14:42) PFSH Medical History (Updated 12/06/22 @ 11:09 by Ann Vo PA-C) Adjustment disorder Cholelithiasis GERD (gastroesophageal reflux disease) Morbid obesity Obesity Sleep apnea Surgical History History of esophagogastroduodenoscopy (EGD) Hx of section Hx of gastric bypass Hx of wisdom tooth extraction Family History Mother Family history of thyroid problem Diabetes High blood cholesterol Hypertension Father No problems noted. Sister Family history of thyroid problem Son Mental disability Social History Are you a primary career consultant to a significant other at home: No Do you presently have visiting nurse or other home services: No Alcohol intake: former Patient Tobacco Use Status: Never used Tobacco service: No Current occupational status: employed Behavioral Health Assessment Weight Management Therapy Therapy Notes Details Pt presents for a f/up. Pt reports been doing well with weight-loss however has been skipping meals as she forgets about it. Interventions: Talk therapy, information gathering. Discussed cultural background and influence around weight and other family practices. Discussed personal goals around weight and strategies to avoid skipping meals such as behavioral activation plan with a medical planner, meal prepping and alarms/reminders. Response: PT was open, active and angaged. Plan: continue meeting on a bi-weekly basis for counseling. Presenting Concerns Referral Source [facility] Provider. Reason for referral support due to ongoing weight-loss challenges and family stress. Precipitating Event Weight management. Living Situation Current Living Situation Rent At risk of losing current housing? No Satisfied with current living situation? Yes Comments PT lives with fiance and 2 children. Food/Weight/Diet Expectations of change Pt is not sure about what's a healthy weight for her, but she wants to be around 175Lbs History/Relationship with food Fast food, outside eating. No portion control in household, she was allowed to repeat even if not hungry after having a meal. 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 Lowest weight has been 208Lbs before having children. History/Relationship with dieting PT had bariatric surgery in 2004 at [facility]. pre-surgery she was 340Lbs, lowest weight was 205Lbs. After that she got in 2007, she went up to 300Lbs. in 2015 after second she was down to 217Lbs. However by 2018 she started to gain weight again. She has tried: TLC (morning tea), got a treadmill and she will use it couple days at week. 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 Binge Eating Do you frequently eat large amounts of food in short periods of time, not feeling physically hungry? No Do you feel out of control when you eat a large amount of food in a short period of time? No Do you eat large amounts of food rapidly and typically alone? No Night Eating Do you wake up at least once during the night to eat? No If you wake up in the night, do you find that it is necessary to eat something in order to fall back asleep? No Do you have little or no appetite in the morning and feel very hungry in the evening, often overeating between dinner and when you go to bed? No Social History Family history and relationship She is in a stable relationship for 7 years, engaged 3 years ago. She has 2 boys, 14 and 8 y/o. Mom lives in the [place], dad is in [place]. She has 2 siblings here and one back home in [place]. 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 Developmental history and status WNL. Social support Grandmother, children. Community support None reported Hinduism/Spirituality Quaker. Cultural/Ethnic information Pt is , she was born in [place]. [place]oved [place] the [place] age 2. Legal Involvement and History Current or historical involvement with the legal system? None reported. Education Highest grade completed HS. Preferred learning style Learn by doing and Visual Currently enrolled in educational program? No Interested in further educational program? 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 Financial Situation Describe current financial situation Comfortable and Occasional struggle Financial assistance? None Service Service? No Mental Health and Addiction Treatment Current/Past substance abuse? No Current/Past addictive behavior concerns? No Psychiatric history None reported. Medical and Physical Health Summary Additional Medical History not covered in history None reported Sexual History concerns None reported. Physical exam in the last year? Yes Pain Screening Current pain? No Pain in the last few months? No Medications Is the patient compliant with medications? Yes Does the patient have Claros Guardian in place? Not applicable Does the patient use complimentary health approaches? No Trauma/Abuse History History of trauma? No Assessment & Plan Assessment & Plan (1) Adjustment disorder: Code(s): F43.20 - Adjustment disorder, unspecified (2) Partner relationship problem: Code(s): Z63.0 - Problems in relationship with spouse or partner Plan We will continue meeting to provide support to manage current challenges impacting her weight-loss goals and daily functioning. F/up in 2-3 weeks. Coding Level of Care Code Established Pt Tele Psytx >53 mins ([id number]) Patient Type Established Diagnoses Adjustment disorder F43.20 Partner relationship problem Z63.0 Time Spent (min) 70
== END 2023-02-25 13:58 | disposition home or self-care (01) ==
PROVIDERS: PCP Nurse Practitioner Family; Visit Provider Counselor Mental Health
DX: F43.20 Adjustment disorder, unspecified (principal); Z63.0 Problems in relationship with spouse or partner
CPT/HCPCS: 90837

== ENCOUNTER → 2023-02-25 12:12 | Outpatient (BNVA) | payer OTHER, MEDICAID, SELFPAY | PROVIDERS: PCP Nurse Practitioner Family; Visit Provider Counselor Mental Health ==

== ENCOUNTER → 2023-03-11 12:07 | Outpatient (BNVA) | payer OTHER, MEDICAID, SELFPAY | PROVIDERS: PCP Nurse Practitioner Family; Visit Provider Counselor Mental Health ==

== ENCOUNTER 2023-04-18 11:04 | Outpatient (AMB) | payer MEDICAID, SELFPAY ==
[2023-04-18 11:07] VITALS: BP 111/70; PULSE 97; TEMP 36.3; O2SAT 96; BMI 37.6
--- NOTE | 2023-04-18 11:07 | A.OFFVIS_ITS ---
Intake VS Expanded 04/18/23 11:07 Height 5 ft 3 in Weight 212 lb 6.4 oz BMI 37.6 BP 111/70 Blood Pressure Location Rt brachial Blood Pressure Position Sitting Pulse 97 Pulse Source Pulse Oximeter Temp 97.3 F Temperature Source Tympanic Pulse Oximetry 96 Oxygen Delivery Method Room Air Body Fat 86.6 Body Fat Percentage 40.8 Free Fat Mass 125.6 Muscle Mass 119.2 Visceral Mass 10.0 Water Mass 90.0 BMR 1,750 Intake Visit Reasons: (OV) f/u Morbid Obesity Allergies No Known Allergies Allergy (Verified 04/18/23 11:14) HPI HPI Comments History of Present Illness Details Pt here for MWL followup. She is s/p GBP [id number] and failed attempt at revision in Aug 2022. 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 Has been on Phentermine since Sep 2022 with weight of 235.9. Had lost about 22 lbs until February 2023, with negligible weight loss since then. Patient has been very busy with work and school recently. Does not have a regular meal program. Also not exericsing regularly.- 2-3d/week. Her life should get less busy next month. Will see Tiffany again next month. Goal of 175 lbs. month. [facility] Medical History (Updated 12/06/22 @ 11:09 by Ann Vo PA-C) Adjustment disorder Cholelithiasis GERD (gastroesophageal reflux disease) Morbid obesity Obesity Sleep apnea Surgical History History of esophagogastroduodenoscopy (EGD) Hx of section Hx of gastric bypass Hx of wisdom tooth extraction Family History Mother Family history of thyroid problem Diabetes High blood cholesterol Hypertension Father No problems noted. Sister Family history of thyroid problem Son Mental disability Social History Are you a primary career discovery teacher to a significant other at home: No Do you presently have visiting nurse or other home services: No Alcohol intake: former Patient Tobacco Use Status: Never used Tobacco service: No Current occupational status: employed Physical Exam Vital Signs: Last Vital Signs Temp 97.3 F 04/18/23 11:07 Pulse 97 04/18/23 11:07 BP 111/70 04/18/23 11:07 Pulse Ox 96 04/18/23 11:07 Oxygen Delivery Method Room Air 04/18/23 11:07 BMI result Body Mass Index 37.6 Assessment & Plan Assessment & Plan (1) Obesity: Code(s): E66.9 - Obesity, unspecified Plan: Pt has been using Phentermine irregularly with our any weight loss for last 2 months. 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 We discussed different ideas for meal planning and exercise - TBJP 20 minute cardio videos etc... to help her develop regular routines. We discussed not refilling Phentermine as it is not helping her. And eating protien every 4 hours, vegetables eevery day, dinner meal of no more than 4 oz and 4oz and that all meals should last 20 3- minutes Next appt with me in 4 months, will text me information. Patient is morbidly obese and is not considered stable at this time. I spent 30 minutes in total with patient reviewing/updating records, examining the patient and counseling the patient on weight management as detailed above. (2) S/P gastric bypass: Comment: 2004 [facility] Code(s): Z98.84 - Bariatric surgery status Coding Level of Care Code Est Pt Level 4 (74953) Diagnoses Obesity E66.9 S/P gastric bypass Z98.84
== END 2023-04-18 12:21 | disposition home or self-care (01) ==
PROVIDERS: PCP Nurse Practitioner Family; Visit Provider Physician Assistant
DX: E66.9 Obesity, unspecified (principal); Z98.84 Bariatric surgery status
CPT/HCPCS: 99214

== ENCOUNTER → 2023-04-18 11:04 | Outpatient (BNVA) | payer MEDICAID, SELFPAY | PROVIDERS: PCP Nurse Practitioner Family; Visit Provider Physician Assistant | DX: E66.9 Obesity, unspecified (principal); Z68.37 Body mass index [BMI] 37.0-37.9, adult; Z98.84 Bariatric surgery status | CPT/HCPCS: 99214 ==

== ENCOUNTER 2023-05-19 10:25 | Outpatient (AMB) | payer OTHER, SELFPAY ==
--- NOTE | 2023-05-19 11:03 | A.OFFWM_ITS ---
Intake Intake Visit Reasons: (OV) PO LSG 08/17/22 Allergies No Known Allergies Allergy (Verified 04/18/23 11:14) [facility] Medical History (Updated 12/06/22 @ 11:09 by Ann Vo PA-C) Cholelithiasis Obesity Sleep apnea GERD (gastroesophageal reflux disease) Adjustment disorder Morbid obesity Surgical History History of esophagogastroduodenoscopy (EGD) Hx of section Hx of gastric bypass Hx of wisdom tooth extraction Family History Mother Family history of thyroid problem Diabetes High blood cholesterol Hypertension Father No problems noted. Sister Family history of thyroid problem Son Mental disability Social History Are you a primary career services officer to a significant other at home: No Do you presently have visiting nurse or other home services: No Alcohol intake: former Patient Tobacco Use Status: Never used Tobacco service: No Current occupational status: employed Behavioral Health Assessment Weight Management Therapy Therapy Notes Details Pt presents for a f/up. Not seen 2 months ago. Pt reports been out of track with her weight-loss goals and feeling that not having consistent appointments with med. provider is causing her not to be as compliant, as ongoing appointments serve as a push to follow plan. INTERVENTIONS: Discussed functioning and challenges. Processed factors that have contributed her to fell back off track with weight-loss goals. CBT-based approach used. RESPONSE: Active, engaged. Pt responded well to interventions. PLAN: We will continue meeting every 2-3 weeks. Advised her to set up couple sessions in advance to get support with compliance. Advised to start using a program planner. Presenting Concerns Referral Source P Provider. Reason for referral BH support due to ongoing weight-loss challenges and family stress. Precipitating Event Weight management. Assessment & Plan Assessment & Plan (1) Adjustment disorder: Code(s): F43.20 - Adjustment disorder, unspecified Qualifiers: Adjustment disorder type: unspecified type Qualified Code(s): F43.20 - Adjustment disorder, unspecified (2) Partner relationship problem: Code(s): Z63.0 - Problems in relationship with spouse or partner Plan We will continue meeting to provide support to manage current challenges impacting her weight-loss goals and daily functioning. F/up in 2-3 weeks. Next fela: 06/01/23 at 12pm via telehealth. Coding Level of Care Code Established Pt Tele Psytx 45 mins ([id number]) Patient Type Established Diagnoses Adjustment disorder, unspecified type F43.20 Adjustment disorder type: unspecified type Partner relationship problem Z63.0 Time Spent (min) 45
== END 2023-05-19 12:33 | disposition home or self-care (01) ==
PROVIDERS: PCP Nurse Practitioner Family; Visit Provider Counselor Mental Health
DX: F43.20 Adjustment disorder, unspecified (principal); Z63.0 Problems in relationship with spouse or partner
CPT/HCPCS: 90834

== ENCOUNTER → 2023-05-19 10:25 | Outpatient (BNVA) | payer OTHER, MEDICAID, SELFPAY | PROVIDERS: PCP Nurse Practitioner Family; Visit Provider Counselor Mental Health ==

== ENCOUNTER 2023-06-01 12:00 | Outpatient (AMB) | payer OTHER, SELFPAY ==
--- NOTE | 2023-06-01 12:10 | MHC.WMTHER ---
Intake Intake Visit Reasons: VIDEO PO LSG 08/17/22 Allergies No Known Allergies Allergy (Verified 04/18/23 11:14) [facility] Medical History (Updated 12/06/22 @ 11:09 by Ann Vo PA-C) Cholelithiasis Obesity Sleep apnea GERD (gastroesophageal reflux disease) Adjustment disorder Morbid obesity Surgical History History of esophagogastroduodenoscopy (EGD) Hx of section Hx of gastric bypass Hx of wisdom tooth extraction Family History Mother Family history of thyroid problem Diabetes High blood cholesterol Hypertension Father No problems noted. Sister Family history of thyroid problem Son Mental disability Social History Are you a primary primary care nurse practitioner to a significant other at home: No Do you presently have visiting nurse or other home services: No Alcohol intake: former Patient Tobacco Use Status: Never used Tobacco service: No Current occupational status: employed Behavioral Health Assessment Weight Management Therapy Therapy Notes Details Pt presents for a f/up. PT reports she started planning workouts in advance using an CHARLES and make sure she gets reminders/get ready. So far has been able to attend the gym 3 days at week. Her goal is to go at least 4 times. Also doing some meal prep to anticipate and be consistent while having a busy schedule. INTERVENTIONS: Explored routine and workload. CBT strategies for habit building. Supported with strategies to challenge thoughts and increase commitment with her personal goals. Processed factors that positively/negatively impact her progress and plan to prevent falling back. RESPONSE: PT open and engaged. Agree with recommendations, and responded well to interventions. Presenting Concerns Referral Source [facility] Provider. Reason for referral support due to ongoing weight-loss challenges and family stress. Precipitating Event Weight management. Assessment & Plan Assessment & Plan (1) Adjustment disorder: Code(s): F43.20 - Adjustment disorder, unspecified (2) Partner relationship problem: Code(s): Z63.0 - Problems in relationship with spouse or partner Plan We will continue meeting to provide support to manage current challenges impacting her weight-loss goals and daily functioning. F/upon a bi-weekly basis. Next charles 06/23 @12:15pm. Telehealth Telehealth Location of provider rendering services: other (Home office. [place], [place]) Location of patient: address on file Patient Identification confirmed using: Name, : Yes Telehealth method: video Patient verbally consented to treatment: Yes Patient verbally consented to billing insurance company: Yes Patient informed of any privacy concerns related to visit: Yes Minutes spent on Phone/Video with Pt.: 60 Coding Level of Care Code Established Pt Tele Psytx >53 mins ([id number]) Patient Type Established Diagnoses Adjustment disorder F43.20 Partner relationship problem Z63.0 Time Spent (min) 60
== END 2023-06-01 13:00 | disposition home or self-care (01) ==
LOC: HO.HBST 12:11
PROVIDERS: PCP Nurse Practitioner Family; Visit Provider Counselor Mental Health
DX: F43.20 Adjustment disorder, unspecified (principal); Z63.0 Problems in relationship with spouse or partner
CPT/HCPCS: 90837

== ENCOUNTER → 2023-06-01 12:00 | Outpatient (BNVA) | payer OTHER, MEDICAID, SELFPAY | PROVIDERS: PCP Nurse Practitioner Family; Visit Provider Counselor Mental Health ==